=== PATIENT | female | born 1945 | race Caucasian/White ===

== ENCOUNTER 2017-06-22 10:13 | Inpatient (IN) | payer MEDICARE, SELFPAY ==
[2017-06-22 10:13] VITALS: BP 151/81; PULSE 107; RESP 15; TEMP 36.3; BMI 26.4
[2017-06-22 10:58] VITALS: BP 150/66; PULSE 75; RESP 15; O2SAT 97
--- NOTE | 2017-06-22 11:01 | EKG12_ITS ---
Test Reason : Blood Pressure : / mmHG Vent. Rate : 085 BPM Atrial Rate : 085 BPM P-R Int : 174 ms QRS Dur : 078 ms QT Int : 378 ms P-R-T Axes : 039 035 063 degrees QTc Int : 449 ms Normal sinus rhythm Low voltage QRS Septal infarct , age undetermined Abnormal ECG Confirmed by NIR TODD, JOSEPH ([id number]), social media editor HORACIO HERNÁNDEZ ([id number]) on 06/24/2017 1:29:30 PM Referred By: Confirmed By:JOSEPH LOYOLA MD
--- NOTE | 2017-06-22 11:01 | US_ITS ---
STUDY: ABDOMINAL ULTRASOUND - RIGHT UPPER QUADRANT REASON FOR VISIT: Female, 72 years old. RUQ PAIN- H/O GALLSTONES. TECHNIQUE: Ultrasound evaluation of the right upper quadrant was performed with real-time and static landa-scale imaging. TECHNICAL QUALITY: Adequate. COMPARISON: None. FINDINGS: Liver: The liver measures 13.8 cm. There is increased echogenicity consistent with fatty infiltration. The bile ducts are within normal limits. There is hepatic color flow. The direction of portal flow is hepatopetal. There is no demonstrated mass lesion. Gallbladder: The gallbladder wall measures 5.0 mm. There is a positive sonographic Swann's sign. There is no pericholecystic fluid. There are multiple echogenic structures within the gallbladder, consistent with multiple gallstones. Common Bile Duct (C.B.D.): The common bile duct measures 6 mm. Pancreas: Normal size of the head, body of the pancreas. There is normal echogenicity of the pancreas. There is no demonstrated pancreatic mass or cyst. Right Kidney: Normal size of the right kidney. The right kidney measures 9.8 cm. Normal renal cortex. The right cortex measures cm. There is no demonstrated renal mass or cyst. There is no right hydronephrosis. US/Gallbladder IMPRESSION: Cholelithiasis and positive sonographic Swann's sign. Gallbladder wall thickening. Acute cholecystitis is not excluded No pericholecystic fluid. Electronically Signed: Reji Velez MD at 12:10 EDT Tel , Service support ,
[2017-06-22 11:13] LABS: Absolute Lymphocyte Count 2.39 X10^3/ul (0.83-4.51); Absolute Neutrophil Count 6.5 X10^3/uL (2.0-7.7); Basophil# 0.02 X10^3/uL; Basophil% 0.2 % (0-1); Eosinophil# 0.07 X10^3/uL; Eosinophils% 0.7 % (0-5); Lymphocyte # 2.39 X10^3/ul (4.0); Lymphocyte % 24.1 % (19-41); Mean Corpuscular Hgb 31.2 pg (27.0-32.0); Mean Corpuscular Volume 89.1 fL (81-99); Mean Platelet Vol. 10.9 fl (6.2-12.0); Monocyte# 0.89 X10^3/uL; Neutrophil % 65.6 % (47-70); Platelet Count 213 K/mm3 (150-450); RBC Distribution Width CV 12.5 % (11.6-14.6); RBC Distribution Width SD 40.3 fl (35.1-43.9); Red Blood Count 4.49 M/mm3 (4.2-5.4); White Blood Count 9.9 K/mm3 (4.4-11.0)
[2017-06-22 11:15] LABS: POSITIVE COUNT NO; POSITIVE DIFFERENTIAL NO; POSITIVE MORPHOLOGY NO
[2017-06-22] MEDS: Ondansetron 4 MG/2 ML Vial IV (11:20)
[2017-06-22] MEDS: Morphine 4 MG/ML Syringe IV (11:20)
[2017-06-22 11:29] LABS: ALB/GLOB Ratio 1.1 RATIO (0.9-2.4); AST(SGOT) 21 U/L (15-37); Alanine Aminotransfer ALT/SGPT 16 U/L (13-56); Albumin, Serum 3.9 g/dL (3.2-5.0); Alkaline Phosphatase 55 U/L (45-117); Anion Gap 11 (5-15); BUN 19 mg/dL (7-18); BUN/Creat Ratio 17.3 RATIO (10-20); Calcium,Total 9.4 mg/dL (8.5-10.1); Chloride 102 mmol/L (98-107); EST Glomerular Filtration Rate 52 mL/min (>60); Est Glom Filt Rate - Afr Amer 63 mL/min (>60); Estimated Creatinine Clearance 36.03 ml/min; Globulin 3.6 g/dL (2.2-4.2); Glucose 196 mg/dL (74-106); Lipase 296 U/L (73-393); Potassium 3.4 mmol/L (3.5-5.1); Protein, Total 7.5 g/dL (6.4-8.2); Sodium Level 138 mmol/L (136-145)
[2017-06-22 11:43] LABS: Bacteria 0 SEEN /hpf (None Seen); Mucous, Urine 0 SEEN /hpf (<or=2+); Red Blood Cells-Urine 0 SEEN /hpf (0-5); White Blood Cells 0 SEEN /hpf (0-5)
[2017-06-22 11:45] LABS: Color, Urine Yellow (Yellow); Glucose, Dipstick Normal (Normal); Ketone-Dipstick 15 mg/dl (Negative); Leukocyte Esterase-Dipstick Negative /ul (Negative); Nitrite-Dipstick Negative (Negative); Occult Blood-Urine 10 /ul (Negative); Protein-Dipstick Negative (Negative); Urine Bilirubin Dipstick Negative (Negative); Urine Clarity Clear (Clear); Urine Urobilinogen Normal (Normal)
[2017-06-22 11:50] LABS: Squamous Epithelial Cells - UA 0-5 SEEN /hpf (5-10)
[2017-06-22 12:13] VITALS: BP 132/80; PULSE 89; RESP 14; O2SAT 99
[2017-06-22 13:04] VITALS: BP 148/80; PULSE 85; RESP 14; O2SAT 98
--- NOTE | 2017-06-22 13:21 | ED.VISSUMM ---
- ER Visit Summary Date of Service: 06/22/17 Chief Complaint: [Abdominal pain] History of Present Illness: The patient is a 72 F [presents the emergency department with abdominal pain. It started yesterday at 2 PM. She ate pizza for lunch. It was bilateral upper quadrant and then has continued to get worse on the right side. She has had nausea no vomiting. Bowel movements have been normal. No fevers or chills. She does have a cardiac history and is having some chest pain. She also has a history of gallstones and had a common bile duct stone 5 years ago with biliary duct stent placement and that was subsequently removed but the gallbladder was not taken out.] Physical Examination: [] WN WD NAD PERRL EOMI MMM NECK supple and nontender, no masses RRR no murmur rub or gallop, no peripheral edema, symmetric radial pulses CTAB no respiratory distress ABDOMEN is soft redness to palpation with guarding in the right upper quadrant normal bowel sounds, no distension, no rebound or guarding SKIN is warm and dry no rashes Alert and Oriented x3, CN II-XII in tact, no motor or sensory deficits, gait normal No lymphadenopathy Test Results: [] Emergency Department Course and Treatment: [Screening labs were obtained. EKG was unchanged. Troponin was normal. There was no leukocytosis. Ultrasound consistent with cholecystitis gallbladder wall thickening gallstones with a positive sonographic Swann sign. Liver enzymes are within normal limits. I spoke with Dr. Valdes who will admit the patient.] Treatment Plan: [] Disposition: [Admit] Impression: [choleCystitis] This note was generated with [employer] dictation software. It may contain incorrect words, spelling, and punctuation that were not noted in review of the chart prior to signing ED Disposition - Plan for ED Patient: Chief Complaint: Abd Pain
[2017-06-22 13:48] VITALS: BP 152/78; PULSE 76; RESP 18; TEMP 36.9; O2SAT 96
[2017-06-22 13:55] VITALS: BMI 27.2
[2017-06-22 13:56] VITALS: BMI 27.3
--- NOTE | 2017-06-22 14:56 | PCM.HP.STD ---
<Marika Valdes - Last Filed: 06/22/17 16:56> History of Present Illness The patient is a 72 year old F [] Past Medical History Past Medical History (Chronic Problems): Chronic Problems History of stroke (Chronic) Diabetes mellitus, type 2 (Chronic) Hyperlipidemia (Chronic) Hypertension (Chronic) Allergies iodine Allergy (Verified 06/22/17 10:15) Unknown prednisone Adverse Reaction (Verified 06/22/17 10:15) Other TACHYCARDIA Home Medications: Ambulatory Orders Medication Instructions Recorded Cholecalciferol (Vitamin D3) 1,000 unit PO DAILY 06/22/17 [Vitamin D3] Clopidogrel Bisulfate [Plavix] 75 mg PO DINNER 06/22/17 Enalapril/Hydrochlorothiazide 1 each PO DAILY 06/22/17 [Enalapril-Hctz 10-25 mg Tablet] Glipizide 2.5 mg PO BIDCM 06/22/17 Magnesium 500 mg PO DAILY 06/22/17 Metoprolol Succinate 25 mg PO DAILY 06/22/17 Potassium Chloride [Klor-Con] 20 meq PO DAILY 06/22/17 Ranitidine [Zantac] 150 mg PO DAILY 06/22/17 Simvastatin 40 mg PO QHS 06/22/17 traZODone [Desyrel] 100 mg PO QHS 06/22/17 Acetaminophen [Tylenol] 1,000 mg PO Q8 tablet 06/25/17 Oxycodone [Oxyir] 5 mg PO Q6H PRN PRN 7 Days #30 06/25/17 tablet - Physical Exam Vital Signs Temp Pulse Resp BP Pulse Ox 98.5 F 76 18 152/78 H 96 06/22/17 13:48 06/22/17 13:48 06/22/17 13:48 06/22/17 13:48 06/22/17 13:48 Oxygen Delivery Method Room Air Weight: 67.631 kg Body Mass Index (BMI) 27.2 POC Glucose 06/22/17 16:27 POC Glucose 252 H Assessment/Plan I agree with the above. Clinically, The patient has cholecystitis, will treat with IV antibiotics. I have consulted Dr. Green to evaluate patient for medical evaluation prior to surgery. NPO after MDNT. Plan surgery tomorrow morning. I have discussed the above with the patient and her daughter who is present with her. I have offered the patient the procedure of laparoscopic cholecystectomy. I have explained the procedure to the patient. I have counseled the patient as to the risks of the procedure, including but not limited to: infection, bleeding, injury to any blood vessels/nerves, scar tissue, injury to any intraabdominal organs, injury to kidney/ureters, injury to bowel/bladder, injury to the common bile duct/biliary tree, bile leakage, intraabdominal abscess/bleeding, hernias at incisional sites, wound infections, possible open procedure, complications of anesthesia, postoperative pneumonia/cardiac problems/blood clots etc. the patient understands. She wishes to proceed. I have answered all questions to the patients satisfaction and the patient has no further questions. <Mary Hernandes - Last Filed: 06/27/17 10:24> History of Present Illness Date of Admission: 06/22/17 Chief Complaint: abdominal pain The patient is a 72 year old F I am seeing for surgical consultation in conjunction with Dr. Valdes. The patient notes a 1-day history of severe upper abdominal pain with radiation into her right upper quadrant, began several hours after eating pizza for lunch yesterday. She notes some associated nausea without emesis. She notes a similar episode of pain about 5 years ago, notes was hospitalized at that time and found to have gallstones as well as a common bile duct stone. She had ERCP with stent placement which was later removed. She states there were plans to remove her gallbladder at that time but this was delayed as she required cardiac intervention in the interim. The patient had presented to the emergency department for the worsening abdominal pain. She had laboratory studies which showed a normal white blood cell count and liver enzymes within normal limits. Ultrasound of the right upper quadrant showed gallbladder wall thickening and cholelithiasis with positive sonographic Swann's sign. Due to patient's cardiac history EKG was also obtained which showed no acute changes. Dr. Valdes was contacted and admitted the patient. Patient's past medical history is significant for CVA, type II diabetes mellitus, hypertension, atrial fibrillation, coronary artery disease, hyperlipidemia, and carotid artery stenosis. Past surgical history is significant for CABG and left CEA in 2013, as well as prior ERCP with common bile duct stenting and subsequent removal as noted above. She denies any history of DVT/PE. She denies any problems with anesthesia in the past. Patient follows regularly with Dr. Jones in [place] for her chronic medical conditions, notes she has not followed with a paperhanger contractor for a couple of years. She denies any chest pain or shortness of breath currently. Past Medical History Allergies iodine Allergy (Verified 06/22/17 10:15) Unknown prednisone Adverse Reaction (Verified 06/22/17 10:15) Other TACHYCARDIA Surgical History: coronary bypass surgery, - - Hysterectomy, tonsillectomy, tubal ligation, carotid endarterectomy, ERCP with CBC stent Smoking Status: Former smoker - *Family History Paternal History Items: Diabetes, Heart Disease Review of Systems Constitutional: Reports: Malaise. Denies: Chills, Fever Eyes: Denies: Vision Change HEENT: Denies: Hearing Changes Cardiovascular: Denies: Chest Pain, Chest Pressure, Edema Respiratory: Denies: Shortness of Breath Gastrointestinal: Reports: Abdominal Pain, Nausea. Denies: Diarrhea, Hematemesis Skin: Denies: Skin Changes VTE Information - Inpt Only VTE Present on Admission: No - Physical Exam General: Alert, Oriented x3, Cooperative, No apparent distress, Well developed, Well nourished HEENT: Atraumatic, Normocephalic Oral: Moist Mucosa Neck: Supple, - - scar from CEA Lungs: Clear to auscultation Cardiovascular: Regular rate, Regular Rhythm Abdomen: Bowel Sounds Present, Soft, Tender - TTP mid abdomen and RUQ with mild voluntary guarding, +Swann's sign Extremities: No clubbing, No cyanosis, No edema Skin: No rashes, No breakdown Psych/Mental Status: Normal Affect, Appropriate Vital Signs Temp Pulse Resp BP Pulse Ox 98.5 F 76 18 152/78 H 96 06/22/17 13:48 06/22/17 13:48 06/22/17 13:48 06/22/17 13:48 06/22/17 13:48 Oxygen Delivery Method Room Air Weight: 149 lb 1.6 oz Body Mass Index (BMI) 27.2 Assessment/Plan I have reviewed my findings with Dr. Valdes, who also independently evaluated the patient Cholelithiasis with cholecystitis Patient admitted to floor, per Dr. Valdes will also consult hospitalist to assist with medical management. Hold Plavix. May have clear liquids today, NPO after midnight. Tentative plan for laparoscopic cholecystectomy tomorrow morning. The proposed technique, risks and benefits were discussed with the patient who agreed to proceed with surgery.
[2017-06-22] MEDS: 0.9% NaCl Peripheral Flush Adult/Peds IV ×2 (15:03→20:22)
[2017-06-22] MEDS: Morphine 4 MG/ML Syringe 2 MG IV (15:03)
--- NOTE | 2017-06-22 15:19 | HP.PCM_ITS ---
<Marika Valdes - Last Filed: 06/22/17 16:56> History of Present Illness The patient is a 72 year old F [] Past Medical History Past Medical History (Chronic Problems): Chronic Problems History of stroke (Chronic) Diabetes mellitus, type 2 (Chronic) Hyperlipidemia (Chronic) Hypertension (Chronic) Allergies iodine Allergy (Verified 06/22/17 10:15) Unknown prednisone Adverse Reaction (Verified 06/22/17 10:15) Other TACHYCARDIA Home Medications: Ambulatory Orders Medication Instructions Recorded Cholecalciferol (Vitamin D3) 1,000 unit PO DAILY 06/22/17 [Vitamin D3] Clopidogrel Bisulfate [Plavix] 75 mg PO DINNER 06/22/17 Enalapril/Hydrochlorothiazide 1 each PO DAILY 06/22/17 [Enalapril-Hctz 10-25 mg Tablet] Glipizide 2.5 mg PO BIDCM 06/22/17 Magnesium 500 mg PO DAILY 06/22/17 Metoprolol Succinate 25 mg PO DAILY 06/22/17 Potassium Chloride [Klor-Con] 20 meq PO DAILY 06/22/17 Ranitidine [Zantac] 150 mg PO DAILY 06/22/17 Simvastatin 40 mg PO QHS 06/22/17 traZODone [Desyrel] 100 mg PO QHS 06/22/17 Acetaminophen [Tylenol] 1,000 mg PO Q8 tablet 06/25/17 Oxycodone [Oxyir] 5 mg PO Q6H PRN PRN 7 Days #30 06/25/17 tablet - Physical Exam Vital Signs Temp Pulse Resp BP Pulse Ox 98.5 F 76 18 152/78 H 96 06/22/17 13:48 06/22/17 13:48 06/22/17 13:48 06/22/17 13:48 06/22/17 13:48 Oxygen Delivery Method Room Air Weight: 67.631 kg Body Mass Index (BMI) 27.2 POC Glucose 06/22/17 16:27 POC Glucose 252 H Assessment/Plan I agree with the above. Clinically, The patient has cholecystitis, will treat with IV antibiotics. I have consulted Dr. Green to evaluate patient for medical evaluation prior to surgery. NPO after MDNT. Plan surgery tomorrow morning. I have discussed the above with the patient and her daughter who is present with her. I have offered the patient the procedure of laparoscopic cholecystectomy. I have explained the procedure to the patient. I have counseled the patient as to the risks of the procedure, including but not limited to: infection, bleeding, injury to any blood vessels/nerves, scar tissue, injury to any intraabdominal organs, injury to kidney/ureters, injury to bowel/bladder, injury to the common bile duct/biliary tree, bile leakage, intraabdominal abscess/bleeding, hernias at incisional sites, wound infections, possible open procedure, complications of anesthesia, postoperative pneumonia/ cardiac problems/blood clots etc. the patient understands. She wishes to proceed. I have answered all questions to the patient?s satisfaction and the patient has no further questions. <Mary Hernandes - Last Filed: 06/27/17 10:24> History of Present Illness Date of Admission: 06/22/17 Chief Complaint: abdominal pain The patient is a 72 year old F I am seeing for surgical consultation in conjunction with Dr. Valdes. The patient notes a 1-day history of severe upper abdominal pain with radiation into her right upper quadrant, began several hours after eating pizza for lunch yesterday. She notes some associated nausea without emesis. She notes a similar episode of pain about 5 years ago, notes was hospitalized at that time and found to have gallstones as well as a common bile duct stone. She had ERCP with stent placement which was later removed. She states there were plans to remove her gallbladder at that time but this was delayed as she required cardiac intervention in the interim. The patient had presented to the emergency department for the worsening abdominal pain. She had laboratory studies which showed a normal white blood cell count and liver enzymes within normal limits. Ultrasound of the right upper quadrant showed gallbladder wall thickening and cholelithiasis with positive sonographic Swann' s sign. Due to patient's cardiac history EKG was also obtained which showed no acute changes. Dr. Valdes was contacted and admitted the patient. Patient's past medical history is significant for CVA, type II diabetes mellitus , hypertension, atrial fibrillation, coronary artery disease, hyperlipidemia, and carotid artery stenosis. Past surgical history is significant for CABG and left CEA in 2013, as well as prior ERCP with common bile duct stenting and subsequent removal as noted above. She denies any history of DVT/PE. She denies any problems with anesthesia in the past. Patient follows regularly with Dr. Jones in [place] for her chronic medical conditions, notes she has not followed with a weight calculator for a couple of years. She denies any chest pain or shortness of breath currently. Past Medical History Allergies iodine Allergy (Verified 06/22/17 10:15) Unknown prednisone Adverse Reaction (Verified 06/22/17 10:15) Other TACHYCARDIA Surgical History: coronary bypass surgery, - - Hysterectomy, tonsillectomy, tubal ligation, carotid endarterectomy, ERCP with CBC stent Smoking Status: Former smoker - *Family History Paternal History Items: Diabetes, Heart Disease Review of Systems Constitutional: Reports: Malaise. Denies: Chills, Fever Eyes: Denies: Vision Change HEENT: Denies: Hearing Changes Cardiovascular: Denies: Chest Pain, Chest Pressure, Edema Respiratory: Denies: Shortness of Breath Gastrointestinal: Reports: Abdominal Pain, Nausea. Denies: Diarrhea, Hematemesis Skin: Denies: Skin Changes VTE Information - Inpt Only VTE Present on Admission: No - Physical Exam General: Alert, Oriented x3, Cooperative, No apparent distress, Well developed, Well nourished HEENT: Atraumatic, Normocephalic Oral: Moist Mucosa Neck: Supple, - - scar from CEA Lungs: Clear to auscultation Cardiovascular: Regular rate, Regular Rhythm Abdomen: Bowel Sounds Present, Soft, Tender - TTP mid abdomen and RUQ with mild voluntary guarding, +Swann's sign Extremities: No clubbing, No cyanosis, No edema Skin: No rashes, No breakdown Psych/Mental Status: Normal Affect, Appropriate Vital Signs Temp Pulse Resp BP Pulse Ox 98.5 F 76 18 152/78 H 96 06/22/17 13:48 06/22/17 13:48 06/22/17 13:48 06/22/17 13:48 06/22/17 13:48 Oxygen Delivery Method Room Air Weight: 149 lb 1.6 oz Body Mass Index (BMI) 27.2 Assessment/Plan I have reviewed my findings with Dr. Valdes, who also independently evaluated the patient Cholelithiasis with cholecystitis Patient admitted to floor, per Dr. Valdes will also consult hospitalist to assist with medical management. Hold Plavix. May have clear liquids today, NPO after midnight. Tentative plan for laparoscopic cholecystectomy tomorrow morning. The proposed technique, risks and benefits were discussed with the patient who agreed to proceed with surgery.
--- NOTE | 2017-06-22 15:33 | PCM.PROGNOTE ---
<Mila Mendenhall - Last Filed: 06/22/17 16:20> Subjective: Patient seen and examined. Complains of right mid and right upper quadrant abdominal pain. Not relieved by previous dose of IV morphine. Complains of nausea, denies emesis. Denies fever, chills. Denies chest pain, shortness of breath. Denies other current complaints. - Physical Exam General: Alert, Oriented x3, Cooperative, - - Appears uncomfortable HEENT: Atraumatic, PERRLA, EOMI, Normocephalic Oral: Dry Mucosa Neck: Supple, No JVD, Negative Carotid Bruits Lungs: Clear to auscultation, Diminished Cardiovascular: Regular rate, Regular Rhythm, Normal S1, Normal S2, No murmurs Abdomen: Bowel Sounds Present, Soft, Obese, Tender - Right upper quadrant Extremities: No clubbing, No cyanosis, No edema, Capillary Refill Less than 3 Seconds Skin: No rashes, No breakdown Musculoskeletal: No Tenderness to Palpation of Joints or Extremities Neurological: Cranial nerves II-XII grossly intact, Neuro grossly intact Psych/Mental Status: Normal Affect, Appropriate Vital Signs Temp Pulse Resp BP Pulse Ox 98.5 F 76 18 152/78 H 96 06/22/17 13:48 06/22/17 13:48 06/22/17 13:48 06/22/17 13:48 06/22/17 13:48 Oxygen Delivery Method Room Air Weight: 67.631 kg Body Mass Index (BMI) 27.2 Medical Necessity - Tobacco Use Smoking Status: Former smoker Assessment/Plan Patient is a 72-year-old female admitted 06/22/[address] Valdes due to cholecystitis. Hospitalist services requested for medical management. 1. Acute cholecystitis-ultrasound on admission consistent with cholecystitis, gallbladder wall thickening with positive sonographic Swann sign. Patient admitted under Dr. Valdes who plans for cholecystectomy tomorrow. Clear liquid diet. N.p.o. at midnight. PRN pain regimen. Zofran as needed for nausea. Begin IV fluids at midnight due to n.p.o. status. No leukocytosis. Afebrile. 2. Mild hypokalemia-replace orally. Monitor BMP. 3. Mild elevated creatinine-at patient's baseline of 1.1. Suspect underlying chronic kidney disease. Monitor BMP. 4. CAD s/p CABG approximately 3 years ago in [facility] she has not followed up with cardiology since that time. Continue statin, metoprolol. Hold Plavix prior to surgery. Obtain EKG in a.m. Patient denies current or recent chest pain. Denies shortness of breath at rest and with exertion. Recommend follow-up with cardiology as outpatient at discharge. 5. Hypertension-stable, continue to monitor. Continue home regimen. As needed hydralazine. 6. Hyperlipidemia-continue statin. 7. CVA/TIA-continue statin, metoprolol. Hold Plavix prior to surgery. 8. History of diverticulitis 9. GERD-continue Zantac. 10. Type 2 diabetes mellitus-hold oral regimen. Accu-Cheks before meals at bedtime with sliding scale insulin. 11. Depression-continue home trazodone regimen. 12. Carotid artery disease-continue statin. Hold Plavix prior to surgery. DVT prophylaxis-Lovenox subcu. Hold prior to surgery. This patient was seen by DERICK Styles under the supervision of Dr. Green. <Martin Green - Last Filed: 06/22/17 17:13> Subjective: Seen and examined Patient is admitted with right upper quadrant abdominal pain along with nausea. Clinical picture is consistent with acute cholecystitis with cholelithiasis - Physical Exam Lungs: Clear to auscultation, No rhonchi, No wheeze, No rales Cardiovascular: Regular rate, Regular Rhythm, Normal S1, Normal S2 Abdomen: Tender Vital Signs Temp Pulse Resp BP Pulse Ox 98.5 F 76 18 152/78 H 96 06/22/17 13:48 06/22/17 13:48 06/22/17 13:48 06/22/17 13:48 06/22/17 13:48 Oxygen Delivery Method Room Air Weight: 149 lb 1.6 oz Body Mass Index (BMI) 27.2 POC Glucose 06/22/17 16:27 POC Glucose 252 H Assessment/Plan This patient was seen in conjunction with Mila MATHIS. I have independently interviewed and examined the patient and reviewed pertinent history, examination findings, laboratory and plan of management. I have reviewed the note and agree with the documented findings with the few additional points. In brief, patient is admitted for acute cholecystitis with cholelithiasis. She had similar abdominal pain with cholecystitis about 3 years ago but surgery was postponed secondary to coronary artery disease and she had coronary artery bypass surgery. She did not had cardiac event since then. She has good exercise capacity and climbs up and down several times about 30 steps daily. She can walk 1-2 blocks. EKG shows normal sinus rhythm with old septal infarct. Mcgee perioperative risk for MS or cardiac arrest at 0.1%. Mild hypokalemia: Potassium replaced I have discussed my assessment with RUBBER GOODS CUTTER FINISHERMila and orders have been reviewed. Clinical Impression(s) from Imaging Studies Gallbladder Ultrasound 06/22/17 11:01 IMPRESSION: Cholelithiasis and positive sonographic Swann's sign. Gallbladder wall thickening. Acute cholecystitis is not excluded No pericholecystic fluid. Electronically Signed: Reji Velez MD at 12:10 EDT Tel , Service support , Code Visit Inpatient E&M: 24291 Init Hosp L2
--- NOTE | 2017-06-22 15:55 | PN_ITS ---
<Mila Mendenhall - Last Filed: 06/22/17 16:20> Subjective: Patient seen and examined. Complains of right mid and right upper quadrant abdominal pain. Not relieved by previous dose of IV morphine. Complains of nausea, denies emesis. Denies fever, chills. Denies chest pain, shortness of breath. Denies other current complaints. - Physical Exam General: Alert, Oriented x3, Cooperative, - - Appears uncomfortable HEENT: Atraumatic, PERRLA, EOMI, Normocephalic Oral: Dry Mucosa Neck: Supple, No JVD, Negative Carotid Bruits Lungs: Clear to auscultation, Diminished Cardiovascular: Regular rate, Regular Rhythm, Normal S1, Normal S2, No murmurs Abdomen: Bowel Sounds Present, Soft, Obese, Tender - Right upper quadrant Extremities: No clubbing, No cyanosis, No edema, Capillary Refill Less than 3 Seconds Skin: No rashes, No breakdown Musculoskeletal: No Tenderness to Palpation of Joints or Extremities Neurological: Cranial nerves II-XII grossly intact, Neuro grossly intact Psych/Mental Status: Normal Affect, Appropriate Vital Signs Temp Pulse Resp BP Pulse Ox 98.5 F 76 18 152/78 H 96 06/22/17 13:48 06/22/17 13:48 06/22/17 13:48 06/22/17 13:48 06/22/17 13:48 Oxygen Delivery Method Room Air Weight: 67.631 kg Body Mass Index (BMI) 27.2 Medical Necessity - Tobacco Use Smoking Status: Former smoker Assessment/Plan Patient is a 72-year-old female admitted 06/22/[address] Valdes due to cholecystitis. Hospitalist services requested for medical management. 1. Acute cholecystitis-ultrasound on admission consistent with cholecystitis, gallbladder wall thickening with positive sonographic Swann sign. Patient admitted under Dr. Valdes who plans for cholecystectomy tomorrow. Clear liquid diet. N.p.o. at midnight. PRN pain regimen. Zofran as needed for nausea. Begin IV fluids at midnight due to n.p.o. status. No leukocytosis. Afebrile. 2. Mild hypokalemia-replace orally. Monitor BMP. 3. Mild elevated creatinine-at patient's baseline of 1.1. Suspect underlying chronic kidney disease. Monitor BMP. 4. CAD s/p CABG approximately 3 years ago in [facility] she has not followed up with cardiology since that time. Continue statin, metoprolol. Hold Plavix prior to surgery. Obtain EKG in a.m. Patient denies current or recent chest pain. Denies shortness of breath at rest and with exertion. Recommend follow-up with cardiology as outpatient at discharge. 5. Hypertension-stable, continue to monitor. Continue home regimen. As needed hydralazine. 6. Hyperlipidemia-continue statin. 7. CVA/TIA-continue statin, metoprolol. Hold Plavix prior to surgery. 8. History of diverticulitis 9. GERD-continue Zantac. 10. Type 2 diabetes mellitus-hold oral regimen. Accu-Cheks before meals at bedtime with sliding scale insulin. 11. Depression-continue home trazodone regimen. 12. Carotid artery disease-continue statin. Hold Plavix prior to surgery. DVT prophylaxis-Lovenox subcu. Hold prior to surgery. This patient was seen by DERICK Styles under the supervision of Dr. Green. <Martin Green - Last Filed: 06/22/17 17:13> Subjective: Seen and examined Patient is admitted with right upper quadrant abdominal pain along with nausea. Clinical picture is consistent with acute cholecystitis with cholelithiasis - Physical Exam Lungs: Clear to auscultation, No rhonchi, No wheeze, No rales Cardiovascular: Regular rate, Regular Rhythm, Normal S1, Normal S2 Abdomen: Tender Vital Signs Temp Pulse Resp BP Pulse Ox 98.5 F 76 18 152/78 H 96 06/22/17 13:48 06/22/17 13:48 06/22/17 13:48 06/22/17 13:48 06/22/17 13:48 Oxygen Delivery Method Room Air Weight: 149 lb 1.6 oz Body Mass Index (BMI) 27.2 POC Glucose 06/22/17 16:27 POC Glucose 252 H Assessment/Plan This patient was seen in conjunction with Mila MATHIS. I have independently interviewed and examined the patient and reviewed pertinent history, examination findings, laboratory and plan of management. I have reviewed the note and agree with the documented findings with the few additional points. In brief, patient is admitted for acute cholecystitis with cholelithiasis. She had similar abdominal pain with cholecystitis about 3 years ago but surgery was postponed secondary to coronary artery disease and she had coronary artery bypass surgery. She did not had cardiac event since then. She has good exercise capacity and climbs up and down several times about 30 steps daily. She can walk 1-2 blocks. EKG shows normal sinus rhythm with old septal infarct. Mcgee perioperative risk for WA or cardiac arrest at 0.1%. Mild hypokalemia: Potassium replaced I have discussed my assessment with MOLDER VACUUMMila and orders have been reviewed. Clinical Impression(s) from Imaging Studies Gallbladder Ultrasound 06/22/17 11:01 IMPRESSION: Cholelithiasis and positive sonographic Swann's sign. Gallbladder wall thickening. Acute cholecystitis is not excluded No pericholecystic fluid. Electronically Signed: Reji Velez MD at 12:10 EDT Tel , Service support , Code Visit Inpatient E&M: 46026 Init Hosp L2
[2017-06-22] MEDS: 0.9% Normal Saline 1,000 ML 100 ML IV (16:31)
[2017-06-22 16:46] LABS: Bedside Glucose 252 mg/dL (70-110)
[2017-06-22] MEDS: HYDROmorphone 0.5 MG/0.5 ML SYRINGE IV ×3 (17:32→23:19)
[2017-06-22 21:51] VITALS: BP 129/60; PULSE 78; RESP 16; TEMP 36.8; O2SAT 99
[2017-06-22] MEDS: Atorvastatin Calcium 20 MG Tablet PO (22:05)
[2017-06-22 22:51] LABS: Bedside Glucose 210 mg/dL (70-110)
[2017-06-23] VITALS (13 sets, daily range): BP systolic 110–149; BP diastolic 35–80; PULSE 71–100; RESP 14–18; TEMP 36.2–37.3; O2SAT 93–100; BMI 27.2; BMI 27.3
--- NOTE | 2017-06-23 | GALL_PTH ---
PATIENT: YING MORATAYA LOC: MS3 U#:[id number] AGE/SX: 72/F ROOM: MS319 RE06/22/[address]: Dr. Manasa Davis MD : [id number] BED: 1 DIS: 06/25/2017 SPEC #: [id number] RECD: 06/23/17 14:58 STATUS: ZACH REQ #: [id number] TICO: 06/23/17 00:[address]: Marika Valdes DEPT: SURGICAL PATHOLOGY RECD BY: Mike Hankins ENTERED: 06/23/17 14:58 SP TYPE: GALLBLADDE OTHR DR: MD Dr. Lynn Harman MD Dr. Linda Wang, MD Dr. Prakash Chand, MD Tissues: Gallbladder, NOS Procedures: Surgery Specimen Level III Comments: @ Ordering doctor for SUIII edited from to @ by MAMIE at 06/23/17 1545 @ Submitting doctor edited from to @ by ARMENOD at 06/23/17 1545 HEADER OPERATION: Laparoscopic cholecystectomy PRE-OP DIAGNOSIS: Cholelithiasis, biliary colic and suspected cholecystitis TISSUE SUBMITTED: Gallbladder MICROSCOPIC DIAGNOSIS Gallbladder: Acute and chronic cholecystitis and cholelithiasis. Reactive epithelial changes. SJ:michelle 06/24/17 COMMENT Case has been reviewed in consultation with Dr. Vo who concurs with the above diagnosis. IDC:AM MICROSCOPIC DESCRIPTION Slides are reviewed. GROSS DESCRIPTION Received is one container labeled with the patient's name and designated gallbladder. The specimen consists of a previously, partially opened gallbladder in two pieces measuring 8 cm in length and 3.5 cm in diameter. The external surface is pink-barkley, smooth and glistening for the most part. Focally it is granular, hemorrhagic and contains cautery artifact. Present in the gallbladder and also in the container are multiple irregular brownish-black stones measuring in aggregate 5 x 4.5 x 3 cm and 0.5 to 3 cm in greatest dimension. No obvious bile is identified in the gallbladder. The gallbladder wall measures up to 0.8 cm in thickness. Pipe Washer sections from the gallbladder and the cystic duct are submitted in one cassette. / SJ:michelle 06/23/17 More sections are submitted in three more cassettes, 2-4. / IMAN:michelle 06/24/17 TC:2 CPT: 98918
[2017-06-23] MEDS: 0.9% Normal Saline 1,000 ML 100 ML IV (03:23)
[2017-06-23 05:55] LABS: Hematocrit 36.9 % (37-47); Hemoglobin 12.1 g/dl (12.0-15.0); Mean Corp Hgb Conc 32.8 g/gl (32-36); Mean Corpuscular Hgb 29.8 pg (27.0-32.0); Mean Corpuscular Volume 90.9 fL (81-99); Mean Platelet Vol. 10.5 fl (6.2-12.0); Platelet Count 173 K/mm3 (150-450); RBC Distribution Width CV 12.7 % (11.6-14.6); RBC Distribution Width SD 41.9 fl (35.1-43.9); Red Blood Count 4.06 M/mm3 (4.2-5.4)
--- NOTE | 2017-06-23 05:55 | EKG12_ITS ---
Test Reason : AM EKG Blood Pressure : / mmHG Vent. Rate : 068 BPM Atrial Rate : 068 BPM P-R Int : 180 ms QRS Dur : 076 ms QT Int : 410 ms P-R-T Axes : 050 031 059 degrees QTc Int : 435 ms Normal sinus rhythm Low voltage QRS Septal infarct , age undetermined Abnormal ECG Confirmed by CECILE TODD, VELIA ([id number]), publications editor HORACIO HERNÁNDEZ ([id number]) on 07/06/2017 3:25:21 PM Referred By: LYDIA Confirmed By:VELIA HUBER MD
[2017-06-23 06:09] LABS: Scan Indicated on CBC? Y/N NO
[2017-06-23 06:17] LABS: Anion Gap 7 (5-15); BUN 14 mg/dL (7-18); BUN/Creat Ratio 13.5 RATIO (10-20); Calcium,Total 8.5 mg/dL (8.5-10.1); Chloride 104 mmol/L (98-107); Creatinine, Serum 1.04 mg/dL (0.55-1.02); EST Glomerular Filtration Rate 55 mL/min (>60); Est Glom Filt Rate - Afr Amer 67 mL/min (>60); Glucose 233 mg/dL (74-106); Potassium 4.4 mmol/L (3.5-5.1); Sodium Level 140 mmol/L (136-145)
[2017-06-23 06:55] LABS: Bedside Glucose 252 mg/dL (70-110)
--- NOTE | 2017-06-23 08:24 | PCM.PN.HOSP ---
Subjective: Patient seen and examined. Complains of some RUQ pain, with some nausea. Denies fever, chills, SOB, diarrhea. She is going for laparoscopic cholecystectomy this morning by Dr. Valdes. Vitals/I&O's: Vital Signs Temp Pulse Resp BP Pulse Ox 98.3 F 71 16 110/56 L 96 06/23/17 03:34 06/23/17 03:34 06/23/17 03:34 06/23/17 03:34 06/23/17 03:34 Oxygen Delivery Method Room Air Weight: 67.631 kg Body Mass Index (BMI) 27.2 Intake and Output for Last 24 Hours 06/21/17 06/22/17 06/23/17 23:59 23:59 23:59 Intake Total / 1689 / 1689 Balance 168 / 1689 General: Alert, Oriented x3, Cooperative, No apparent distress HEENT: Atraumatic, PERRLA, EOMI, Normocephalic Oral: Moist Mucosa Neck: Supple Lungs: Clear to auscultation, Normal air movement Cardiovascular: Regular rate, Regular Rhythm, Normal S1, Normal S2, No murmurs Abdomen: Bowel Sounds Present, Soft, Non Tender, Obese, Tender - in RUQ without guarding or RBT Extremities: No edema Skin: No rashes, No breakdown Musculoskeletal: No Tenderness to Palpation of Joints or Extremities Lymphatic: No Cervical, Supraclavicular, or Inguinal Adenopathy Neurological: Cranial nerves II-XII grossly intact, Neuro grossly intact Psych/Mental Status: Normal Affect, Appropriate Laboratory Results 06/22/17 16:27: POC Glucose 252 H 06/22/17 22:08: POC Glucose 210 H 06/23/17 05:35: Sodium 140, Potassium 4.4, Chloride 104, Carbon Dioxide 29.0, Anion Gap 7, BUN 14, Creatinine 1.04 H, Estim Creat Clear Calc 38.10, Est GFR (MDRD) Af Amer 67, Est GFR (MDRD) Non-Af 55 L, BUN/Creatinine Ratio 13.5, Glucose 233 H, Calcium 8.5 06/23/17 05:35: Hemoglobin A1c Pending 06/23/17 05:35: WBC 11.0, RBC 4.06 L, Hgb 12.1, Hct 36.9 L, MCV 90.9, MCH 29.8, MCHC 32.8, RDW 12.7, RDW Differential 41.9, Plt Count 173, MPV 10.5 06/23/17 06:41: POC Glucose 252 H Current Medications Atorvastatin Calcium (Lipitor) 20 mg PO QHS [facility] Last Admin: 06/22/17 22:05 Dose: 20 mg Cholecalciferol (Vitamin D) 1,000 unit PO DAILY [facility] Dextrose (D50w Syringe) 0 gm IV X1 PRN; Protocol PRN Reason: Hypoglycemia Glucagon () 1 mg IM .X1 PRN PRN Reason: Hypoglycemia Hydralazine HCl (Apresoline Iv) 5 mg IV Q4H PRN PRN PRN Reason: BLOOD PRESSURE Hydrochlorothiazide (Hctz) 25 mg PO DAILY [facility] Hydromorphone HCl (Dilaudid Inj) 0.5 mg IV Q2H PRN PRN PRN Reason: SEVERE PAIN (6-1010) Last Admin: 06/22/17 23:19 Dose: 0.5 mg Sodium Chloride () 1,000 mls @ 100 mls/hr IV .Q10H [facility] Last Admin: 06/23/17 03:23 Dose: 100 mls/hr Pantoprazole Sodium 40 mg/ (Sodium Chloride) 110 mls @ 330 mls/hr IV Q12 [facility] Last Admin: 06/22/17 22:06 Dose: 330 mls/hr Cefotetan Disodium/Dextrose (Cefotan) 1 gm in 50 mls @ 100 mls/hr IV Q12 [facility] Last Admin: 06/22/17 17:57 Dose: 100 mls/hr Insulin Aspart (Novolog Flexpen (Bkc)) 0 units SC ACHS [facility]Y PRN Reason: Protocol Last Admin: 06/23/17 06:42 Dose: 4 u Lisinopril (Zestril) 10 mg PO DAILY [facility] Metoprolol Succinate (Toprol Xl (Beta Silvana)) 25 mg PO DAILY [facility] Ondansetron HCl (Zofran) 4 mg IV Q8H PRN PRN PRN Reason: NAUSEA/VOMITING Potassium Chloride (K-Dur) 20 meq PO DAILY [facility] Sodium Chloride () 5 - 30 ml IV UD PRN PRN Reason: SALINE FLUSH Last Admin: 06/22/17 20:22 Dose: 5 ml Trazodone HCl (Desyrel) 100 mg PO QHS [facility] Last Admin: 06/22/17 22:05 Dose: Not Given Medical Necessity - Tobacco Use Smoking Status: Former smoker Assessment/Plan 72-year-old female with PMHx of choledocholithiasis s/p ERCP with stent placement admitted on 06/22/2017 with abdominal pain, nausea, concerning for cholecystitis. 1. Acute cholecystitis, confirmed with gallbladder ultrasound, positive sonographic Swann's sign and gallbladder wall thickness, -ultrasound on admission consistent with cholecystitis, gallbladder wall thickening, no abnormal LFTs, general surgery consulted, patient for laparoscopic cholecystectomy today, pain is fairly controlled, on IV antibiotics. 2. Hypokalemia, replaced, recheck BMP in a.m. 3. Elevated creatinine secondary to dehydration, improved with hydration, creatinine improved from 1.10 to 1.04, recheck BMP in a.m. 4. CAD s/p CABG, on beta-silvana, statin, MELISSA inhibitor, Plavix on hold on account of surgery 5. Hypertension, continue home lisinopril, metoprolol 6. Hyperlipidemia, on statin. 7. CVA/TIA, on statin, metoprolol. Clopidogrel on hold on account of surgery 8. History of diverticulitis 9. GERD, on famotidine 10.Type 2 diabetes mellitus, patient's are on hold, blood sugars are fairly controlled, Accu-Cheks before meals at bedtime with sliding scale insulin. 11. Depression, on trazodone. 12. DVT prophylaxis-Lovenox subcu Code Visit Inpatient E&M: 42414 Subs Hosp L2
--- NOTE | 2017-06-23 09:51 | CASEMGMT ---
RN CM Assessment completed. See Assessment Link. Margie CRENSHAWN RN ACM
[2017-06-23 09:58] LABS: Hemoglobin A1c 8.8 % (4.2-6.3)
--- NOTE | 2017-06-23 10:12 | NURSING ---
call placed to AC and report given to RN who will be taking this pt
--- NOTE | 2017-06-23 11:07 | PCA ---
pt off floor
--- NOTE | 2017-06-23 11:31 | OP.PN_ITS ---
Immediate Post-Op Note Date of Procedure: 06/23/17 Primary Surgeon/Physician: Marika Valdes mobile paramedical examiner: Tao Estrella Pre-Operative Diagnosis: cholelithiasis, cholecystitis Post-Operative Diagnosis: cholelithiasis with obstruction, cholecystitis Surgery/Procedure Performed:: laparoscopic cholecystectomy Description of Surgical Findings:: severe cholecystitis and cholelithiasis, gallbladder stones with gallbladder obstruction Estimated Blood Loss: 25 Specimen's removed: gallbladder and contents Drains: 15 Fr KURT in right upper quadrant Type of Anesthesia:: General ASA Class: ASA2 Mod Systematic Disease - Admit VTE Documentation VTE Present on Admission: Yes VTE Mechan Device Prophylaxis: SCD's
--- NOTE | 2017-06-23 11:31 | OP.PCM_ITS ---
Report of Operation Date of Procedure: 06/23/17 Pre-Operative Diagnosis: cholelithiasis, cholecystitis Post-Operative Diagnosis: cholelithiasis with obstruction, acute on chronic cholecystitis Surgery/Procedure Performed:: laparoscopic cholecystectomy with cholangiograms Description of Surgical Findings:: cholelithiasis with obstruction, grossly distended gallbladder with thickened wall, omental adhesions to free surface of gallbladder - dense attachments, due to inflammation - could not identify cystic duct - gallbladder transected proximally milking machine mechanic: Jo-Ann Bernardo Type of Anesthesia:: General Anesthesiologist: Elysia Cain Specimen's removed: gallbladder and contents Drains: 15 Fr round drain in right upper quadrant of abdomen Estimated Blood Loss (mL): 25 ml Fluids Replaced: see anesthesia note Description of Procedure: After informed consent was given, the patient was brought to the Operating Room and placed in the supine position. Appropriate time out protocol was followed. The patient was then placed under general endotracheal anesthesia. The abdomen was then prepped with a sterile surgical skin preparation and sterile surgical drapes were placed. An area superior to the umbilicus was chosen for the camera trocar site - the skin and subcutaneous tissues were infiltrated with local anesthetic. A small vertical skin incision was made with a 15 blade scalpel. The anterior fascia was grasped with penetrating clamps. The anterior abdominal wall was elevated and a Veress needle was carefully inserted into the intraabdominal cavity. It was checked to be in the proper position with a normal saline drop test. A CO2 pneumoperitoneum was then created. Once this was achieved, then the Veress needle was removed and an 11mm trocar was placed in its stead. A 10mm laparoscope was then inserted into the trocar and careful attention was directed to the intraabdominal contents. There was no evidence of injury to any intraabdominal organs from insertion of the Veress needle or the trocar. Under direct visualization, a 5mm subxiphoid trocar and two lateral 5mm right subcostal trocars were placed. The skin and subcutaneous tissues at these sites were infiltrated with local anesthetic prior to placement of these trocars. Attention was then directed to the right upper quadrant of the abdomen. The gallbladder was grossly distented. There were dense omental adhesions to the free surface of the gallbladder. Needle aspiration inserted into the gallbladder revealed clear bilious fluid consistent with obstruction. Graspers were placed in the lateral trocars to grasp the distal aspect of the gallbladder and direct it cephalad and to grasp the gallbladder at Higginbotham?s pouch and direct it laterally. Dissection then began on the proximal gallbladder continuing down to the area of the triangle of Calot. However, there were dense adhesions in this area. Therefore at the level of Higginbotham's pouch, the gallbladder was opened. There were obstructing gallstones at this location. There were removed. The remainder of the gallbladder distally was then from the liver bed using electrocautery. There was inflamed tissue and also the patient was on plavix and therefore there was inflammatory oozing present. This was controlled with electrocautery and also surgicel. It was difficult to identify for any cystic duct, however, if appeared that only a small remnant of the gallbladder proximal pouch was noted. The majority portion of the gallbladder was placed in an Endobag and removed via the periumbilical trocar site. The liver bed and area of dissection was vigorously irrigated with saline solution and all irrigant was aspirated out. A 15 Fr round drain was placed in the area of dissection and brought out of the abdomen via one of the lateral trocars. It was then sutured to the abdominal wall skin using nylon suture. Marshal was applied to the liver bed. No active bleeding or bile leak was noted at time of closure. The CO2 pneumoperitoneum was released and all trocars removed intact. The periumbilical fascia was approximated with a [id number] 0 vicryl suture. All skin incisions were closed with 4-0 monocryl in a subdermal fashion. Cavilol and Steristrips were used to reinforce the skin closure. Sterile dressings were applied to all wounds. The patient was extubated and brought to the Recovery Room in stable condition. - Complications none noted - Admit VTE Documentation VTE Present on Admission: Yes VTE Mechan Device Prophylaxis: SCD's
[2017-06-23] MEDS: Ondansetron 4 MG/2 ML Vial (12:50)
--- NOTE | 2017-06-23 13:05 | PCA ---
pt off floor
[2017-06-23] MEDS: Bupivacaine 0.25% 30 ML Vial (13:09)
[2017-06-23 13:36] LABS: Bedside Glucose 193 mg/dL (70-110)
[2017-06-23] MEDS: Metoprolol(XL)Succ 25 MG Tablet PO (16:09)
[2017-06-23] MEDS: Lisinopril 10 MG Tablet PO (16:10)
[2017-06-23 17:31] LABS: Bedside Glucose 216 mg/dL (70-110)
[2017-06-23] MEDS: HYDROmorphone 0.5 MG/0.5 ML SYRINGE IV ×2 (17:38→20:08)
[2017-06-23] MEDS: 0.9% NaCl Peripheral Flush Adult/Peds IV (17:39)
[2017-06-23] MEDS: 0.9% Normal Saline 1,000 ML 75 ML IV (22:05)
[2017-06-23] MEDS: HYDROcodone Bitartrate/Apap 5/325 Tablet PO (22:39)
[2017-06-23] MEDS: Atorvastatin Calcium 20 MG Tablet PO (22:39)
[2017-06-23 23:15] LABS: Bedside Glucose 258 mg/dL (70-110)
[2017-06-24] VITALS (7 sets, daily range): BP systolic 78–106; BP diastolic 40–58; PULSE 67–91; RESP 16–18; TEMP 36.7–37.1; O2SAT 93–96
[2017-06-24] MEDS: HYDROcodone Bitartrate/Apap 5/325 Tablet PO ×2 (02:57→06:54)
[2017-06-24 06:51] LABS: Bedside Glucose 199 mg/dL (70-110)
--- NOTE | 2017-06-24 08:07 | PCM.PN.SRG ---
- Physical Exam General: Alert, Oriented x3 Oral: Moist Mucosa Neck: Supple Lungs: Normal air movement Abdomen: Bowel Sounds Present, Soft, Distended, - - dressings intact, minimal seepage, KURT output is serosanguinous rectal examination - no stools in vault, air in vault Vital Signs Temp Pulse Resp BP Pulse Ox 98.1 F 67 16 87/40 L 93 06/24/17 03:00 06/24/17 03:00 06/24/17 03:00 06/24/17 03:00 06/24/17 03:00 Oxygen Flow Rate (L/min) 2 Oxygen Delivery Method Room Air Weight: 67.631 kg Body Mass Index (BMI) 27.2 Intake and Output for Last 24 Hours 06/22/17 06/23/17 06/24/17 23:59 23:59 23:59 Intake Total 220 / 220 4486 / 4486 2012 Output Total 200 / 200 60 / 60 Balance 220 / 220 4286 / 4286 1952 / 1952 Laboratory Tests Past 24 Hrs 06/23/17 05:35 Hemoglobin A1c 8.8 H POC Glucose 06/24/17 06/23/17 06/23/17 06:39 22:49 16:17 POC Glucose 199 H 258 H 216 H 06/23/17 13:33 POC Glucose 193 H Medical Necessity - Tobacco Use Smoking Status: Former smoker Assessment/Plan Impression: POD#1 s/p laparoscopic cholecystectomy Plan: Patient still feeling weak, also still with pain Will change to dilaudid Check labs I will be leaving town this afternoon, if patient is not discharged, Dr. Reyes will follow patient.
[2017-06-24 09:09] LABS: Absolute Lymphocyte Count 1.79 X10^3/ul (0.83-4.51); Absolute Neutrophil Count 7.9 X10^3/uL (2.0-7.7); Basophil# 0.01 X10^3/uL; Basophil% 0.1 % (0-1); Eosinophil# 0.04 X10^3/uL; Eosinophils% 0.4 % (0-5); Hematocrit 33.2 % (37-47); Hemoglobin 10.8 g/dl (12.0-15.0); Lymphocyte # 1.79 X10^3/ul (4.0); Lymphocyte % 16.2 % (19-41); Mean Corp Hgb Conc 32.5 g/gl (32-36); Mean Corpuscular Hgb 30.6 pg (27.0-32.0); Mean Corpuscular Volume 94.1 fL (81-99); Mean Platelet Vol. 11.2 fl (6.2-12.0); Monocyte# 1.31 X10^3/uL; Monocyte% 11.9 % (0-10); Neutrophil # 7.86 X10^3/uL (2.7-7.7); POSITIVE COUNT NO; POSITIVE DIFFERENTIAL NO; POSITIVE MORPHOLOGY NO; Platelet Count 148 K/mm3 (150-450); RBC Distribution Width CV 12.8 % (11.6-14.6); RBC Distribution Width SD 42.4 fl (35.1-43.9); Red Blood Count 3.53 M/mm3 (4.2-5.4); White Blood Count 11.1 K/mm3 (4.4-11.0)
[2017-06-24 09:35] LABS: ALB/GLOB Ratio 0.8 RATIO (0.9-2.4); AST(SGOT) 29 U/L (15-37); Alanine Aminotransfer ALT/SGPT 15 U/L (13-56); Albumin, Serum 2.6 g/dL (3.2-5.0); Alkaline Phosphatase 42 U/L (45-117); Anion Gap 7 (5-15); BUN 17 mg/dL (7-18); BUN/Creat Ratio 11.2 RATIO (10-20); Calcium,Total 7.7 mg/dL (8.5-10.1); Chloride 109 mmol/L (98-107); Creatinine, Serum 1.52 mg/dL (0.55-1.02); EST Glomerular Filtration Rate 36 mL/min (>60); Est Glom Filt Rate - Afr Amer 43 mL/min (>60); Estimated Creatinine Clearance 26.07 ml/min; Globulin 3.1 g/dL (2.2-4.2); Glucose 209 mg/dL (74-106); Potassium 4.3 mmol/L (3.5-5.1); Protein, Total 5.7 g/dL (6.4-8.2); Sodium Level 142 mmol/L (136-145)
--- NOTE | 2017-06-24 09:54 | PCM.DC.GB ---
Discharge Diet: No Restrictions Discharge Activity: Return to Normal Activity, May not drive while taking narcotic pain medications. Lifting Restrictions: no lifting greater the 20 pounds for 2 weeks Call your doctor if your incision/area has: Continuous Slow Oozing, Foul Smelling Discharge Call your doctor if you observe: Fever of 101 or Higher Additional Dressing/Incision Instructions:: Leave dressings intact. Sponge bathe only. Empty KURT drain and reconstitute suction as instructed by nurses Allergies/Adverse Reactions: Allergies iodine Allergy (Verified 06/22/17 10:15) Unknown prednisone Adverse Reaction (Verified 06/22/17 10:15) Other TACHYCARDIA Medications to take at Discharge Cholecalciferol (Vitamin D3) [Vitamin D3] 1,000 unit PO DAILY 06/22/17 Clopidogrel Bisulfate [Plavix] 75 mg PO DINNER 06/22/17 Enalapril/Hydrochlorothiazide [Enalapril-Hctz 10-25 mg Tablet] 1 each PO DAILY 06/22/17 Glipizide 2.5 mg PO BIDCM 06/22/17 Magnesium 500 mg PO DAILY 06/22/17 Metoprolol Succinate 25 mg PO DAILY 06/22/17 Potassium Chloride [Klor-Con] 20 meq PO DAILY 06/22/17 Ranitidine [Zantac] 150 mg PO DAILY 06/22/17 Simvastatin 40 mg PO QHS 06/22/17 traZODone [Desyrel] 100 mg PO QHS 06/22/17 Primary Care Physician: Lynn Jones MD [Primary Care Provider] - Please Follow Up With: Marika Valdes MD - When: to be seen on Tuesday at 2:20 at my office, thank you
--- NOTE | 2017-06-24 10:01 | DCINST_ITS ---
Discharge Diet: No Restrictions Discharge Activity: Return to Normal Activity, May not drive while taking narcotic pain medications. Lifting Restrictions: no lifting greater the 20 pounds for 2 weeks Call your doctor if your incision/area has: Continuous Slow Oozing, Foul Smelling Discharge Call your doctor if you observe: Fever of 101 or Higher Additional Dressing/Incision Instructions:: Leave dressings intact. Sponge bathe only. Empty KURT drain and reconstitute suction as instructed by nurses Allergies/Adverse Reactions: Allergies iodine Allergy (Verified 06/22/17 10:15) Unknown prednisone Adverse Reaction (Verified 06/22/17 10:15) Other TACHYCARDIA Medications to take at Discharge Cholecalciferol (Vitamin D3) [Vitamin D3] 1,000 unit PO DAILY 06/22/17 Clopidogrel Bisulfate [Plavix] 75 mg PO DINNER 06/22/17 Enalapril/Hydrochlorothiazide [Enalapril-Hctz 10-25 mg Tablet] 1 each PO DAILY 06/22/17 Glipizide 2.5 mg PO BIDCM 06/22/17 Magnesium 500 mg PO DAILY 06/22/17 Metoprolol Succinate 25 mg PO DAILY 06/22/17 Potassium Chloride [Klor-Con] 20 meq PO DAILY 06/22/17 Ranitidine [Zantac] 150 mg PO DAILY 06/22/17 Simvastatin 40 mg PO QHS 06/22/17 traZODone [Desyrel] 100 mg PO QHS 06/22/17 Primary Care Physician: Lynn Jones MD [Primary Care Provider] - Please Follow Up With: Marika Valdes MD - When: to be seen on Tuesday at 2:20 at my office, thank you
[2017-06-24] MEDS: hydroCHLOROthiazide 25 MG Tablet PO (10:49)
[2017-06-24 11:35] LABS: Bedside Glucose 192 mg/dL (70-110)
--- NOTE | 2017-06-24 12:25 | CASEMGMT ---
RN YAS discussed dc planning with pt. PT/OT evaluations completed-ambulated 120' CG, assist of 1. is in room. Pt plans to return home and agrees, states there will be plenty of help at home. Discussed dc needs. None identified. Pt will be able to f/u with physicians and has prescription coverage. Plan: dc home tomorrow with family support. Margie JENSEN RN CM
[2017-06-24] MEDS: Acetaminophen 500 MG Tablet 1000 MG PO ×2 (13:12→21:22)
[2017-06-24] MEDS: 0.9% Normal Saline 1,000 ML 100 ML IV ×2 (13:13→22:47)
--- NOTE | 2017-06-24 14:03 | PCM.PN.HOSP ---
Subjective: Patient was seen and examined, she feels weak. Pain in the right upper quadrant region, area of his surgery is fairly controlled. Her night was significant for episodes of hypotension, status post fluid boluses, was secondary to a Dilaudid pain medications. I explained the risks and benefits of pain medications. Blood pressure at the moment is less than 90 systolic. Denied any dizziness or shortness of breath or leg swelling. She complains of feeling tired. Denies any fever or chills Objective: Physical exam: General: Alert, Oriented x3, Cooperative, appears weak, not pale, not jaundiced HEENT: Atraumatic, PERRLA, EOMI, Normocephalic Oral: Moist Mucosa Neck: Supple Lungs: Clear to auscultation, Normal air movement Cardiovascular: Regular rate, Regular Rhythm, Normal S1, Normal S2, No murmurs Abdomen: Bowel Sounds Present, Soft,Tenderness over RUQ with guarding, dressing over RUQ with drains showing serosanguinous discharge, Obese, Tender - in RUQ without guarding or RBT Extremities: No edema Skin: No rashes, No breakdown Musculoskeletal: No Tenderness to Palpation of Joints or Extremities Lymphatic: No Cervical, Supraclavicular, or Inguinal Adenopathy Neurological: Cranial nerves II-XII grossly intact, Neuro grossly intact Psych/Mental Status: Normal Affect, Appropriate Vitals/I&O's: Vital Signs Temp Pulse Resp BP Pulse Ox 98.8 F 80 16 95/53 L 96 06/24/17 11:28 06/24/17 11:28 06/24/17 11:28 06/24/17 11:28 06/24/17 11:28 Oxygen Flow Rate (L/min) 2 Oxygen Delivery Method Room Air Weight: 67.631 kg Body Mass Index (BMI) 27.2 Intake and Output for Last 24 Hours 06/22/17 06/23/17 06/24/17 23:59 23:59 23:59 Intake Total 220 / 220 4486 / 4486 3148 / 3148 Output Total 200 / 200 60 / 60 Balance 220 / 220 4286 / 4286 3088 / 3088 Laboratory Results 06/23/17 16:17: POC Glucose 216 H 06/23/17 22:49: POC Glucose 258 H 06/24/17 06:39: POC Glucose 199 H 06/24/17 08:38: Sodium 142, Potassium 4.3, Chloride 109 H, Carbon Dioxide 26.0, Anion Gap 7, BUN 17, Creatinine 1.52 H, Estim Creat Clear Calc 26.07, Est GFR (MDRD) Af Amer 43 L, Est GFR (MDRD) Non-Af 36 L, BUN/Creatinine Ratio 11.2, Glucose 209 H, Calcium 7.7 L, Total Bilirubin 1.60 H, AST 29, ALT 15, Alkaline Phosphatase 42 L, Total Protein 5.7 L, Albumin 2.6 L, Globulin 3.1, Albumin/Globulin Ratio 0.8 L 06/24/17 09:06: WBC 11.1 H, RBC 3.53 L, Hgb 10.8 L, Hct 33.2 L, MCV 94.1, MCH 30.6, MCHC 32.5, RDW 12.8, RDW Differential 42.4, Plt Count 148 L, MPV 11.2, Immature Gran % (Auto) 0.400, Neut % (Auto) 71.0 H, Lymph % (Auto) 16.2 L, [place] % (Auto) 11.9 H, Eos % (Auto) 0.4, Baso % (Auto) 0.1, Absolute Neuts (auto) 7.9 H, Absolute Lymphs (auto) 1.79, Total Counted Not Reportable 06/24/17 11:25: POC Glucose 192 H Current Medications Acetaminophen (Tylenol) 1,000 mg PO Q8 [facility] Last Admin: 06/24/17 13:12 Dose: 1,000 mg Atorvastatin Calcium (Lipitor) 20 mg PO QHS [facility] Last Admin: 06/23/17 22:39 Dose: 20 mg Cholecalciferol (Vitamin D) 1,000 unit PO DAILY [facility] Last Admin: 06/24/17 10:49 Dose: 1,000 unit Clopidogrel Bisulfate (Plavix) 75 mg PO DINNER [facility] Dextrose (D50w Syringe) 0 gm IV X1 PRN; Protocol PRN Reason: Hypoglycemia Glipizide (Glucotrol) 2.5 mg PO BIDCM [facility] Glucagon () 1 mg IM .X1 PRN PRN Reason: Hypoglycemia Hydrochlorothiazide (Hctz) 25 mg PO DAILY [facility] Last Admin: 06/24/17 10:49 Dose: 25 mg Hydromorphone HCl (Dilaudid Inj) 0.5 mg IV Q2H PRN PRN PRN Reason: SEVERE PAIN (6-10/10) Pantoprazole Sodium 40 mg/ (Sodium Chloride) 110 mls @ 330 mls/hr IV Q12 [facility] Last Admin: 06/24/17 12:06 Dose: 330 mls/hr Cefotetan Disodium/Dextrose (Cefotan) 1 gm in 50 mls @ 100 mls/hr IV Q12 [facility] Last Admin: 06/24/17 10:48 Dose: 100 mls/hr Sodium Chloride () 1,000 mls @ 100 mls/hr IV .Q10H [facility] Last Admin: 06/24/17 13:13 Dose: 100 mls/hr Insulin Aspart (Novolog Flexpen (Bkc)) 0 units SC ACHS [facility] PRN Reason: Protocol Last Admin: 06/24/17 11:30 Dose: 2 u Lisinopril (Zestril) 10 mg PO DAILY [facility] Last Admin: 06/24/17 10:37 Dose: Not Given Magnesium Hydroxide (Milk Of Magnesia) 30 ml PO DAILY PRN PRN Reason: Constipation Metoprolol Succinate (Toprol Xl (Beta Silvana)) 25 mg PO DAILY [facility] Last Admin: 06/24/17 10:37 Dose: Not Given Non-Formulary Medication (Magnesium [Magnesium]) 500 mg PO DAILY [facility] Ondansetron HCl (Zofran) 4 mg IV Q8H PRN PRN PRN Reason: NAUSEA/VOMITING Oxycodone HCl (Oxyir) 5 mg PO Q6H PRN PRN PRN Reason: SEVERE PAIN (6-10/10) Potassium Chloride (K-Dur) 20 meq PO DAILY [facility] Last Admin: 06/24/17 10:49 Dose: 20 meq Senna/Docusate Sodium (Senokot-S, Abby-Colace) 1 tablet PO DAILY PRN PRN PRN Reason: CONSTIPATION Sodium Chloride () 5 - 30 ml IV UD PRN PRN Reason: SALINE FLUSH Last Admin: 06/23/17 17:39 Dose: 10 ml Trazodone HCl (Desyrel) 100 mg PO QHS [facility] Last Admin: 06/23/17 22:39 Dose: Not Given Medical Necessity - Tobacco Use Smoking Status: Former smoker Assessment/Plan 72-year-old female with PMHx of choledocholithiasis s/p ERCP with stent placement and removal, admitted on 06/22/2017 with abdominal pain, nausea, concerning for cholecystitis. 1. Relative hypotension noted in the immediate postop, likely related to narcotic pain medicine side effects, status post fluid boluses, will continue on IV fluids, will hold regular blood pressure medications for systolic less than 110. 2. POD #1, s/p laparoscopic cholecystectomy for acute cholecystitis, patient developed hypotension with narcotic pain medication, would rather use scheduled Tylenol with as needed oxycodone. 3. Hypokalemia, resolved, will recheck BMP in a.m. 4. Acute kidney injury, creatinine elevated to 1.50, secondary to dehydration, would hold lisinopril and hydrochlorothiazide, continue IV fluids, repeat blood work in a.m. 5. CAD s/p CABG, on beta-silvana, statin, MELISSA inhibitor, will resume Plavix 6. Hypertension, relatively hypotensive now, continue on metoprolol, hydrochlorothiazide and lisinopril are on hold, will continue to monitor, with holding parameters for systolic less than 110. 7. Hyperlipidemia, on statin. 8. CVA/TIA, on statin, metoprolol, Plavix 9. History of diverticulitis 10. GERD, on famotidine 11.Type 2 diabetes mellitus, blood sugars uncontrolled, home glipizide on hold, will resume 12. Depression, on trazodone. 13. DVT prophylaxis-Lovenox subcu 14. Disposition: Possible discharge tomorrow if patient improves, blood pressure is improved, pain is controlled, and physical and occupational therapy give their assessment for disposition. General surgery is ready for discharge from their standpoint. Patient appeared weak and had hypotensione today. Code Visit Inpatient E&M: 15546 Subs Hosp L3
--- NOTE | 2017-06-24 14:06 | PN_ITS ---
Subjective: Patient was seen and examined, she feels weak. Pain in the right upper quadrant region, area of his surgery is fairly controlled. Her night was significant for episodes of hypotension, status post fluid boluses , was secondary to a Dilaudid pain medications. I explained the risks and benefits of pain medications. Blood pressure at the moment is less than 90 systolic. Denied any dizziness or shortness of breath or leg swelling. She complains of feeling tired. Denies any fever or chills Objective: Physical exam: General: Alert, Oriented x3, Cooperative, appears weak, not pale, not jaundiced HEENT: Atraumatic, PERRLA, EOMI, Normocephalic Oral: Moist Mucosa Neck: Supple Lungs: Clear to auscultation, Normal air movement Cardiovascular: Regular rate, Regular Rhythm, Normal S1, Normal S2, No murmurs Abdomen: Bowel Sounds Present, Soft,Tenderness over RUQ with guarding, dressing over RUQ with drains showing serosanguinous discharge, Obese, Tender - in RUQ without guarding or RBT Extremities: No edema Skin: No rashes, No breakdown Musculoskeletal: No Tenderness to Palpation of Joints or Extremities Lymphatic: No Cervical, Supraclavicular, or Inguinal Adenopathy Neurological: Cranial nerves II-XII grossly intact, Neuro grossly intact Psych/Mental Status: Normal Affect, Appropriate Vitals/I&O's: Vital Signs Temp Pulse Resp BP Pulse Ox 98.8 F 80 16 95/53 L 96 06/24/17 11:28 06/24/17 11:28 06/24/17 11:28 06/24/17 11:28 06/24/17 11:28 Oxygen Flow Rate (L/min) 2 Oxygen Delivery Method Room Air Weight: 67.631 kg Body Mass Index (BMI) 27.2 Intake and Output for Last 24 Hours 06/22/17 06/23/17 06/24/17 23:59 23:59 23:59 Intake Total 220 / 220 4486 / 4486 3148 / 3148 Output Total 200 / 200 60 / 60 Balance 220 / 220 4286 / 4286 3088 / 3088 Laboratory Results 06/23/17 16:17: POC Glucose 216 H 06/23/17 22:49: POC Glucose 258 H 06/24/17 06:39: POC Glucose 199 H 06/24/17 08:38: Sodium 142, Potassium 4.3, Chloride 109 H, Carbon Dioxide 26.0, Anion Gap 7, BUN 17, Creatinine 1.52 H, Estim Creat Clear Calc 26.07, Est GFR ( MDRD) Af Amer 43 L, Est GFR (MDRD) Non-Af 36 L, BUN/Creatinine Ratio 11.2, Glucose 209 H, Calcium 7.7 L, Total Bilirubin 1.60 H, AST 29, ALT 15, Alkaline Phosphatase 42 L, Total Protein 5.7 L, Albumin 2.6 L, Globulin 3.1, Albumin/ Globulin Ratio 0.8 L 06/24/17 09:06: WBC 11.1 H, RBC 3.53 L, Hgb 10.8 L, Hct 33.2 L, MCV 94.1, MCH 30.6, MCHC 32.5, RDW 12.8, RDW Differential 42.4, Plt Count 148 L, MPV 11.2, Immature Gran % (Auto) 0.400, Neut % (Auto) 71.0 H, Lymph % (Auto) 16.2 L, [place] % (Auto) 11.9 H, Eos % (Auto) 0.4, Baso % (Auto) 0.1, Absolute Neuts (auto) 7.9 H, Absolute Lymphs (auto) 1.79, Total Counted Not Reportable 06/24/17 11:25: POC Glucose 192 H Current Medications Acetaminophen (Tylenol) 1,000 mg PO Q8 [facility] Last Admin: 06/24/17 13:12 Dose: 1,000 mg Atorvastatin Calcium (Lipitor) 20 mg PO QHS [facility] Last Admin: 06/23/17 22:39 Dose: 20 mg Cholecalciferol (Vitamin D) 1,000 unit PO DAILY [facility] Last Admin: 06/24/17 10:49 Dose: 1,000 unit Clopidogrel Bisulfate (Plavix) 75 mg PO DINNER [facility] Dextrose (D50w Syringe) 0 gm IV X1 PRN; Protocol PRN Reason: Hypoglycemia Glipizide (Glucotrol) 2.5 mg PO BIDCM [facility] Glucagon () 1 mg IM .X1 PRN PRN Reason: Hypoglycemia Hydrochlorothiazide (Hctz) 25 mg PO DAILY [facility] Last Admin: 06/24/17 10:49 Dose: 25 mg Hydromorphone HCl (Dilaudid Inj) 0.5 mg IV Q2H PRN PRN PRN Reason: SEVERE PAIN (6-10/10) Pantoprazole Sodium 40 mg/ (Sodium Chloride) 110 mls @ 330 mls/hr IV Q12 [facility] Last Admin: 06/24/17 12:06 Dose: 330 mls/hr Cefotetan Disodium/Dextrose (Cefotan) 1 gm in 50 mls @ 100 mls/hr IV Q12 [facility] Last Admin: 06/24/17 10:48 Dose: 100 mls/hr Sodium Chloride () 1,000 mls @ 100 mls/hr IV .Q10H [facility] Last Admin: 06/24/17 13:13 Dose: 100 mls/hr Insulin Aspart (Novolog Flexpen (Bkc)) 0 units SC ACHS [facility] PRN Reason: Protocol Last Admin: 06/24/17 11:30 Dose: 2 u Lisinopril (Zestril) 10 mg PO DAILY [facility] Last Admin: 06/24/17 10:37 Dose: Not Given Magnesium Hydroxide (Milk Of Magnesia) 30 ml PO DAILY PRN PRN Reason: Constipation Metoprolol Succinate (Toprol Xl (Beta Silvana)) 25 mg PO DAILY [facility] Last Admin: 06/24/17 10:37 Dose: Not Given Non-Formulary Medication (Magnesium [Magnesium]) 500 mg PO DAILY [facility] Ondansetron HCl (Zofran) 4 mg IV Q8H PRN PRN PRN Reason: NAUSEA/VOMITING Oxycodone HCl (Oxyir) 5 mg PO Q6H PRN PRN PRN Reason: SEVERE PAIN (6-10/10) Potassium Chloride (K-Dur) 20 meq PO DAILY [facility] Last Admin: 06/24/17 10:49 Dose: 20 meq Senna/Docusate Sodium (Senokot-S, Abby-Colace) 1 tablet PO DAILY PRN PRN PRN Reason: CONSTIPATION Sodium Chloride () 5 - 30 ml IV UD PRN PRN Reason: SALINE FLUSH Last Admin: 06/23/17 17:39 Dose: 10 ml Trazodone HCl (Desyrel) 100 mg PO QHS [facility] Last Admin: 06/23/17 22:39 Dose: Not Given Medical Necessity - Tobacco Use Smoking Status: Former smoker Assessment/Plan 72-year-old female with PMHx of choledocholithiasis s/p ERCP with stent placement and removal, admitted on 06/22/2017 with abdominal pain, nausea, concerning for cholecystitis. 1. Relative hypotension noted in the immediate postop, likely related to narcotic pain medicine side effects, status post fluid boluses, will continue on IV fluids, will hold regular blood pressure medications for systolic less than 110. 2. POD #1, s/p laparoscopic cholecystectomy for acute cholecystitis, patient developed hypotension with narcotic pain medication, would rather use scheduled Tylenol with as needed oxycodone. 3. Hypokalemia, resolved, will recheck BMP in a.m. 4. Acute kidney injury, creatinine elevated to 1.50, secondary to dehydration, would hold lisinopril and hydrochlorothiazide, continue IV fluids, repeat blood work in a.m. 5. CAD s/p CABG, on beta-silvana, statin, MELISSA inhibitor, will resume Plavix 6. Hypertension, relatively hypotensive now, continue on metoprolol, hydrochlorothiazide and lisinopril are on hold, will continue to monitor, with holding parameters for systolic less than 110. 7. Hyperlipidemia, on statin. 8. CVA/TIA, on statin, metoprolol, Plavix 9. History of diverticulitis 10. GERD, on famotidine 11.Type 2 diabetes mellitus, blood sugars uncontrolled, home glipizide on hold, will resume 12. Depression, on trazodone. 13. DVT prophylaxis-Lovenox subcu 14. Disposition: Possible discharge tomorrow if patient improves, blood pressure is improved, pain is controlled, and physical and occupational therapy give their assessment for disposition. General surgery is ready for discharge from their standpoint. Patient appeared weak and had hypotensione today. Code Visit Inpatient E&M: 34514 Subs Hosp L3
[2017-06-24] MEDS: Clopidogrel Bisulfate 75 MG Tablet PO (16:14)
[2017-06-24] MEDS: glipiZIDE 5 MG Tablet 2.5 MG PO (16:14)
[2017-06-24 16:26] LABS: Bedside Glucose 192 mg/dL (70-110)
[2017-06-24] MEDS: Senna/Docusate Sodium 1 Tablet PO (19:03)
[2017-06-24] MEDS: oxyCODONE 5 MG Tablet PO (19:03)
[2017-06-24] MEDS: Atorvastatin Calcium 20 MG Tablet PO (21:21)
[2017-06-25 00:26] LABS: Bedside Glucose 138 mg/dL (70-110)
[2017-06-25 02:30] VITALS: BP 121/61; PULSE 91; RESP 16; TEMP 36.8; O2SAT 96
[2017-06-25] MEDS: oxyCODONE 5 MG Tablet PO (03:31)
[2017-06-25] MEDS: Acetaminophen 500 MG Tablet 1000 MG PO (06:52)
[2017-06-25 07:00] LABS: Bedside Glucose 136 mg/dL (70-110)
--- NOTE | 2017-06-25 07:39 | PN.SURG_ITS ---
Subjective: Patient is doing well and reporting that the oral meds are controlling her pain. She has no nausea or vomiting. She is passing gas. She tolerated some diet last night and ordered breakfast for this morning. - Physical Exam General: Alert, Oriented x3, Cooperative, No apparent distress HEENT: Atraumatic, PERRLA, EOMI Oral: Moist Mucosa Lungs: Normal air movement Cardiovascular: Regular rate, Regular Rhythm Abdomen: Soft, Non-Distended, Tender - Appropriately tender in the right upper quadrant with no guarding or rebound., - - Incisions are clean dry and intact. KURT drainage is serous. Extremities: No clubbing Skin: No rashes Musculoskeletal: No Muscle Wasting Neurological: Cranial nerves II-XII grossly intact Psych/Mental Status: Normal Affect Vital Signs Temp Pulse Resp BP Pulse Ox 98.3 F 91 16 121/61 H 96 06/25/17 02:30 06/25/17 02:30 06/25/17 02:30 06/25/17 02:30 06/25/17 02:30 Oxygen Flow Rate (L/min) 2 Oxygen Delivery Method Room Air Weight: 149 lb 1.613 oz Body Mass Index (BMI) 27.2 Intake and Output for Last 24 Hours 06/23/17 06/24/17 06/25/17 23:59 23:59 23:59 Intake Total 4486 / 4486 4311 / 4311 1802 / 1802 Output Total 200 / 200 80 / 80 25 / 25 Balance 4286 / 4286 4231 / 4231 1777 / 1777 Laboratory Tests Past 24 Hrs 06/24/17 06/24/17 08:38 09:06 WBC 11.1 H RBC 3.53 L Hgb 10.8 L Hct 33.2 L MCV 94.1 MCH 30.6 MCHC 32.5 RDW 12.8 RDW Differential 42.4 Plt Count 148 L MPV 11.2 Immature Gran % (Auto) 0.400 Neut % (Auto) 71.0 H Lymph % (Auto) 16.2 L [place] % (Auto) 11.9 H Eos % (Auto) 0.4 Baso % (Auto) 0.1 Absolute Neuts (auto) 7.9 H Absolute Lymphs (auto) 1.79 Total Counted Not Reportable Sodium 142 Potassium 4.3 Chloride 109 H Carbon Dioxide 26.0 Anion Gap 7 BUN 17 Creatinine 1.52 H Estim Creat Clear Calc 26.07 Est GFR (MDRD) Af Amer 43 L Est GFR (MDRD) Non-Af 36 L BUN/Creatinine Ratio 11.2 Glucose 209 H Calcium 7.7 L Total Bilirubin 1.60 H AST 29 ALT 15 Alkaline Phosphatase 42 L Total Protein 5.7 L Albumin 2.6 L Globulin 3.1 Albumin/Globulin Ratio 0.8 L POC Glucose 06/25/17 06/24/17 06/24/17 06:55 21:26 16:12 POC Glucose 136 H 138 H 192 H 06/24/17 11:25 POC Glucose 192 H Medical Necessity - Tobacco Use Smoking Status: Former smoker Assessment/Plan 72-year-old female with acute cholecystitis status post laparoscopic cholecystectomy 1. Patient is doing well today and her pain is controlled on p.o. medication. If she tolerates breakfast she should be discharged home with drain in place. She will follow-up with Dr. Valdes on Tuesday. Cesar Reyes MD Pager: [facility] [address] [place] [address], [address] [place] [address] Office:
[2017-06-25 07:49] LABS: Absolute Lymphocyte Count 1.63 X10^3/ul (0.83-4.51); Absolute Neutrophil Count 7.9 X10^3/uL (2.0-7.7); Basophil# 0.01 X10^3/uL; Basophil% 0.1 % (0-1); Eosinophil# 0.09 X10^3/uL; Eosinophils% 0.8 % (0-5); Hematocrit 34.3 % (37-47); Hemoglobin 11.1 g/dl (12.0-15.0); Lymphocyte # 1.63 X10^3/ul (4.0); Lymphocyte % 15.3 % (19-41); Mean Corp Hgb Conc 32.4 g/gl (32-36); Mean Corpuscular Hgb 29.9 pg (27.0-32.0); Mean Corpuscular Volume 92.5 fL (81-99); Monocyte# 0.98 X10^3/uL; Monocyte% 9.2 % (0-10); Neutrophil # 7.92 X10^3/uL (2.7-7.7); Neutrophil % 74.3 % (47-70); Platelet Count 162 K/mm3 (150-450); RBC Distribution Width CV 13.1 % (11.6-14.6); RBC Distribution Width SD 44.2 fl (35.1-43.9); Red Blood Count 3.71 M/mm3 (4.2-5.4); White Blood Count 10.7 K/mm3 (4.4-11.0)
[2017-06-25 07:56] LABS: POSITIVE COUNT NO; POSITIVE DIFFERENTIAL NO; POSITIVE MORPHOLOGY NO
[2017-06-25 08:26] LABS: ALB/GLOB Ratio 0.7 RATIO (0.9-2.4); AST(SGOT) 37 U/L (15-37); Alanine Aminotransfer ALT/SGPT 17 U/L (13-56); Albumin, Serum 2.6 g/dL (3.2-5.0); Alkaline Phosphatase 56 U/L (45-117); Anion Gap 8 (5-15); BUN 12 mg/dL (7-18); Chloride 109 mmol/L (98-107); EST Glomerular Filtration Rate 47 mL/min (>60); Est Glom Filt Rate - Afr Amer 57 mL/min (>60); Estimated Creatinine Clearance 33.02 ml/min; Globulin 3.6 g/dL (2.2-4.2); Glucose 130 mg/dL (74-106); Potassium 3.8 mmol/L (3.5-5.1); Protein, Total 6.2 g/dL (6.4-8.2); Sodium Level 141 mmol/L (136-145)
[2017-06-25] MEDS: glipiZIDE 5 MG Tablet 2.5 MG PO (08:30)
--- NOTE | 2017-06-25 09:15 | PCM.PN.HOSP ---
Subjective: Seen by surgeon. Patient is doing good. Plan to discharge home with strain Vitals/I&O's: Vital Signs Temp Pulse Resp BP Pulse Ox 98.6 F 99 18 104/53 L 99 06/25/17 09:33 06/25/17 09:33 06/25/17 09:33 06/25/17 09:33 06/25/17 09:33 Oxygen Flow Rate (L/min) 2 Oxygen Delivery Method Room Air Weight: 149 lb 1.613 oz Body Mass Index (BMI) 27.2 Intake and Output for Last 24 Hours 06/23/17 06/24/17 06/25/17 23:59 23:59 23:59 Intake Total 4486 / 4486 4311 / 4311 1802 / 1802 Output Total 200 / 200 80 / 80 25 / 25 Balance 4286 / 4286 4231 / 4231 1777 / 1777 General: Alert, Oriented x3, Cooperative HEENT: Atraumatic, PERRLA, EOMI, Normocephalic Neck: Supple, No JVD, Negative Carotid Bruits Lungs: Clear to auscultation, Normal air movement Cardiovascular: Regular rate, Normal S1, Normal S2, No murmurs Abdomen: Bowel Sounds Present, Soft, Tender - Tenderness in the right upper quadrant. KURT drain serous in nature Extremities: No edema, Capillary Refill Less than 3 Seconds Skin: No rashes, No breakdown Musculoskeletal: No Tenderness to Palpation of Joints or Extremities Neurological: Cranial nerves II-XII grossly intact Psych/Mental Status: Normal Affect, Appropriate Laboratory Results 06/24/17 11:25: POC Glucose 192 H 06/24/17 16:12: POC Glucose 192 H 06/24/17 21:26: POC Glucose 138 H 06/25/17 06:55: POC Glucose 136 H 06/25/17 07:10: WBC 10.7, RBC 3.71 L, Hgb 11.1 L, Hct 34.3 L, MCV 92.5, MCH 29.9, MCHC 32.4, RDW 13.1, RDW Differential 44.2 H, Plt Count 162, MPV 11.0, Immature Gran % (Auto) 0.300, Neut % (Auto) 74.3 H, Lymph % (Auto) 15.3 L, [place] % (Auto) 9.2, Eos % (Auto) 0.8, Baso % (Auto) 0.1, Absolute Neuts (auto) 7.9 H, Absolute Lymphs (auto) 1.63, Total Counted Not Reportable 06/25/17 07:10: Sodium 141, Potassium 3.8, Chloride 109 H, Carbon Dioxide 24.0, Anion Gap 8, BUN 12, Creatinine 1.20 H, Estim Creat Clear Calc 33.02, Est GFR (MDRD) Af Amer 57 L, Est GFR (MDRD) Non-Af 47 L, BUN/Creatinine Ratio 10.0, Glucose 130 H, Calcium 8.0 L, Total Bilirubin 0.80, AST 37, ALT 17, Alkaline Phosphatase 56, Total Protein 6.2 L, Albumin 2.6 L, Globulin 3.6, Albumin/Globulin Ratio 0.7 L Medical Necessity - Tobacco Use Smoking Status: Former smoker Assessment/Plan patient is a 72-year-old female admitted for acute cholecystitis with cholelithiasis. She had similar abdominal pain with cholecystitis about 3 years ago but surgery was postponed secondary to coronary artery disease and she had coronary artery bypass surgery. She did not had cardiac event since then. She has good exercise capacity and climbs up and down several times about 30 steps daily. She can walk 1-2 blocks. EKG shows normal sinus rhythm with old septal infarct. Mcgee perioperative risk for MS or cardiac arrest at 0.1%. Patient had postop day 2 of laparoscopic cholecystectomy with KURT drain. Electrolytes are within normal limits. 1. Relative hypotension noted in the immediate postop, likely related to narcotic pain medicine side effects: Resolved 2. POD #2, s/p laparoscopic cholecystectomy for acute cholecystitis; in good. Plan for discharge today. Patient will go home with KURT drain. Follow-up with Dr. Valdes on Tuesday. 3. Hypokalemia, resolved, 4. Acute kidney injury, creatinine elevated to 1.50, secondary to dehydration, initially enalapril and hydrochlorothiazide held, continue IV fluids, creatinine is 1.2. Resume enalapril 5 mg daily and then increase 10 mg daily and slowly reintroduce hydrochlorothiazide. 5. CAD s/p CABG, on beta-husam, statin, MELISSA inhibitor, will resume Plavix 6. Hypertension, blood pressure better. 121/61. 7. Hyperlipidemia, on statin. 8. CVA/TIA, on statin, metoprolol, Plavix 9. History of diverticulitis 10. GERD, on famotidine 11.Type 2 diabetes mellitus, blood sugars uncontrolled, on home glipizide: Resumed 12. Depression, on trazodone. 13. DVT prophylaxis-Lovenox subcu Clinical Impression(s) from Imaging Studies Gallbladder Ultrasound 06/22/17 11:01 IMPRESSION: Cholelithiasis and positive sonographic Swann's sign. Gallbladder wall thickening. Acute cholecystitis is not excluded No pericholecystic fluid. Electronically Signed: Reji Velez MD at 12:10 EDT Tel , Service support , The patient is being discharged by surgical team. Hospitalist team will sign off. Code Visit Inpatient E&M: 15900 Subs Hosp L2
[2017-06-25 09:33] VITALS: BP 104/53; PULSE 99; RESP 18; TEMP 37; O2SAT 99
--- NOTE | 2017-06-25 10:54 | PN_ITS ---
Subjective: Seen by surgeon. Patient is doing good. Plan to discharge home with strain Vitals/I&O's: Vital Signs Temp Pulse Resp BP Pulse Ox 98.6 F 99 18 104/53 L 99 06/25/17 09:33 06/25/17 09:33 06/25/17 09:33 06/25/17 09:33 06/25/17 09:33 Oxygen Flow Rate (L/min) 2 Oxygen Delivery Method Room Air Weight: 149 lb 1.613 oz Body Mass Index (BMI) 27.2 Intake and Output for Last 24 Hours 06/23/17 06/24/17 06/25/17 23:59 23:59 23:59 Intake Total 4486 / 4486 4311 / 4311 1802 / 1802 Output Total 200 / 200 80 / 80 25 / 25 Balance 4286 / 4286 4231 / 4231 1777 / 1777 General: Alert, Oriented x3, Cooperative HEENT: Atraumatic, PERRLA, EOMI, Normocephalic Neck: Supple, No JVD, Negative Carotid Bruits Lungs: Clear to auscultation, Normal air movement Cardiovascular: Regular rate, Normal S1, Normal S2, No murmurs Abdomen: Bowel Sounds Present, Soft, Tender - Tenderness in the right upper quadrant. KURT drain serous in nature Extremities: No edema, Capillary Refill Less than 3 Seconds Skin: No rashes, No breakdown Musculoskeletal: No Tenderness to Palpation of Joints or Extremities Neurological: Cranial nerves II-XII grossly intact Psych/Mental Status: Normal Affect, Appropriate Laboratory Results 06/24/17 11:25: POC Glucose 192 H 06/24/17 16:12: POC Glucose 192 H 06/24/17 21:26: POC Glucose 138 H 06/25/17 06:55: POC Glucose 136 H 06/25/17 07:10: WBC 10.7, RBC 3.71 L, Hgb 11.1 L, Hct 34.3 L, MCV 92.5, MCH 29.9 , MCHC 32.4, RDW 13.1, RDW Differential 44.2 H, Plt Count 162, MPV 11.0, Immature Gran % (Auto) 0.300, Neut % (Auto) 74.3 H, Lymph % (Auto) 15.3 L, Drew % (Auto) 9.2, Eos % (Auto) 0.8, Baso % (Auto) 0.1, Absolute Neuts (auto) 7.9 H, Absolute Lymphs (auto) 1.63, Total Counted Not Reportable 06/25/17 07:10: Sodium 141, Potassium 3.8, Chloride 109 H, Carbon Dioxide 24.0, Anion Gap 8, BUN 12, Creatinine 1.20 H, Estim Creat Clear Calc 33.02, Est GFR ( MDRD) Af Amer 57 L, Est GFR (MDRD) Non-Af 47 L, BUN/Creatinine Ratio 10.0, Glucose 130 H, Calcium 8.0 L, Total Bilirubin 0.80, AST 37, ALT 17, Alkaline Phosphatase 56, Total Protein 6.2 L, Albumin 2.6 L, Globulin 3.6, Albumin/ Globulin Ratio 0.7 L Medical Necessity - Tobacco Use Smoking Status: Former smoker Assessment/Plan patient is a 72-year-old female admitted for acute cholecystitis with cholelithiasis. She had similar abdominal pain with cholecystitis about 3 years ago but surgery was postponed secondary to coronary artery disease and she had coronary artery bypass surgery. She did not had cardiac event since then. She has good exercise capacity and climbs up and down several times about 30 steps daily. She can walk 1-2 blocks. EKG shows normal sinus rhythm with old septal infarct. Mcgee perioperative risk for FL or cardiac arrest at 0.1%. Patient had postop day 2 of laparoscopic cholecystectomy with KURT drain. Electrolytes are within normal limits. 1. Relative hypotension noted in the immediate postop, likely related to narcotic pain medicine side effects: Resolved 2. POD #2, s/p laparoscopic cholecystectomy for acute cholecystitis; in good. Plan for discharge today. Patient will go home with KURT drain. Follow-up with Dr. Valdes on Tuesday. 3. Hypokalemia, resolved, 4. Acute kidney injury, creatinine elevated to 1.50, secondary to dehydration, initially enalapril and hydrochlorothiazide held, continue IV fluids, creatinine is 1.2. Resume enalapril 5 mg daily and then increase 10 mg daily and slowly reintroduce hydrochlorothiazide. 5. CAD s/p CABG, on beta-husam, statin, MELISSA inhibitor, will resume Plavix 6. Hypertension, blood pressure better. 121/61. 7. Hyperlipidemia, on statin. 8. CVA/TIA, on statin, metoprolol, Plavix 9. History of diverticulitis 10. GERD, on famotidine 11.Type 2 diabetes mellitus, blood sugars uncontrolled, on home glipizide: Resumed 12. Depression, on trazodone. 13. DVT prophylaxis-Lovenox subcu Clinical Impression(s) from Imaging Studies Gallbladder Ultrasound 06/22/17 11:01 IMPRESSION: Cholelithiasis and positive sonographic Swann's sign. Gallbladder wall thickening. Acute cholecystitis is not excluded No pericholecystic fluid. Electronically Signed: Reji Velez MD at 12:10 EDT Tel , Service support , The patient is being discharged by surgical team. Hospitalist team will sign off. Code Visit Inpatient E&M: 31689 Subs Hosp L2
--- NOTE | 2017-06-26 10:06 | PCM.DC.BLA ---
Discharge Summary Date of Admission: 06/22/17 Date of Discharge: 06/25/17 Summary: Ms. Kathi Lay is a 72 y/o WF who was admitted for right upper quadrant abdominal pain. Workup with gallbladder ultrasound revealed cholithiasis. Clinically, she appeared to have cholecystitis. She underwent surgery - laparoscopic cholecystectomy on 06/23/17. She was found to have cholelithiasis with obstruction and also chronic cholecystitis. There was a large amount of inflammation and the cystic duct was purposely left open (as further dissection could result in CBD injury) with intraabdominal drain placed. She tolerated procedure well. She had a normal postoperative recovery, however, given her age and frailty, she was discharged on POD#2, tolerating diet and having signs of bowel function. Final diagnosis: cholelithiasis with obstruction, acute on chronic cholecystitis
--- NOTE | 2017-06-28 15:20 | CASEMGMT ---
LUZMA CM Discharge Follow-up Phone Call: RG: Carlos Strata: 3 Call Date: 06/28/17 Discharge Date: 06/25/17 Time of Call: 1520 Duration: 1 min Admitting Diagnosis: Cholelithiasis, Cholecystitis RN YAS attempted follow-up phone call after recent hospitalization. No answer and voice message left with return contact information. No appts made prior to discharge.
== END 2017-06-25 10:18 | disposition home or self-care (01) | DRG 419 ==
LOC: ED 13:12 → MS2 13:14 → MS3 06-24 14:27
PROVIDERS: Anesthesiology; Internal Medicine; Nurse Practitioner Family; Surgery; Admitting Provider Surgery; Emergency Provider Emergency Medicine; Family Provider Internal Medicine; PCP Internal Medicine; Visit Provider Internal Medicine
PROC: 0FT44ZZ Resection of Gallbladder, Percutaneous Endoscopic Approach (ICD-10-PCS; CPT 47610; principal; 2017-06-23 10:40)
DX: K80.13 Calculus of gallbladder with acute and chronic cholecystitis with obstruction (principal); E11.9 Type 2 diabetes mellitus without complications; E78.5 Hyperlipidemia, unspecified; I10 Essential (primary) hypertension; E87.6 Hypokalemia; I25.10 Atherosclerotic heart disease of native coronary artery without angina pectoris; K21.9 Gastro-esophageal reflux disease without esophagitis; F32.9 Major depressive disorder, single episode, unspecified; E86.0 Dehydration; Z86.73 Personal history of transient ischemic attack (TIA), and cerebral infarction without residual deficits; Z95.1 Presence of aortocoronary bypass graft; Z87.891 Personal history of nicotine dependence
CPT/HCPCS: 36415; 76705; 80048; 80053; 81001; 82962; 83036; 83690; 85025; 85027; 88304; 93005; 97162; 97165; 99283; J7030; J7040; A4216; J2405

== ENCOUNTER 2017-10-01 11:15 | Emergency (ER) | payer MEDICARE, BC, SELFPAY ==
[2017-10-01 11:15] VITALS: BP 120/66; PULSE 62; RESP 16; TEMP 35.5; O2SAT 99; BMI 12.5
[2017-10-01] MEDS: 0.9% Normal Saline 1,000 ML 150 ML IV (12:06)
[2017-10-01 12:11] LABS: Absolute Lymphocyte Count 4.78 X10^3/ul (0.83-4.51); Absolute Neutrophil Count 3.9 X10^3/uL (2.0-7.7); Basophil# 0.04 X10^3/uL; Basophil% 0.4 % (0-1); Eosinophil# 0.16 X10^3/uL; Eosinophils% 1.6 % (0-5); Hematocrit 39.3 % (37-47); Hemoglobin 13.2 g/dl (12.0-15.0); Lymphocyte # 4.78 X10^3/ul (4.0); Lymphocyte % 48.8 % (19-41); Mean Corp Hgb Conc 33.6 g/gl (32-36); Mean Corpuscular Hgb 30.3 pg (27.0-32.0); Mean Corpuscular Volume 90.3 fL (81-99); Mean Platelet Vol. 10.8 fl (6.2-12.0); Monocyte# 0.93 X10^3/uL; Monocyte% 9.5 % (0-10); Neutrophil # 3.87 X10^3/uL (2.7-7.7); Neutrophil % 39.5 % (47-70); Platelet Count 215 K/mm3 (150-450); RBC Distribution Width CV 12.8 % (11.6-14.6); RBC Distribution Width SD 41.8 fl (35.1-43.9); Red Blood Count 4.35 M/mm3 (4.2-5.4); White Blood Count 9.8 K/mm3 (4.4-11.0)
[2017-10-01 12:21] LABS: AST(SGOT) 68 U/L (15-37); Alanine Aminotransfer ALT/SGPT 28 U/L (13-56); Albumin, Serum 3.7 g/dL (3.2-5.0); Alkaline Phosphatase 61 U/L (45-117); Anion Gap 9 (5-15); BUN 17 mg/dL (7-18); BUN/Creat Ratio 16.3 RATIO (10-20); Bilirubin, Direct 0.39 mg/dL (0.00-0.30); Chloride 105 mmol/L (98-107); Creatinine, Serum 1.04 mg/dL (0.55-1.02); EST Glomerular Filtration Rate 55 mL/min (>60); Est Glom Filt Rate - Afr Amer 67 mL/min (>60); Estimated Creatinine Clearance 23.63 ml/min; Globulin 3.5 g/dL (2.2-4.2); Glucose 153 mg/dL (74-106); Lipase 224 U/L (73-393); POSITIVE COUNT NO; POSITIVE DIFFERENTIAL NO; POSITIVE MORPHOLOGY NO; Potassium 3.6 mmol/L (3.5-5.1); Protein, Total 7.2 g/dL (6.4-8.2); Sodium Level 140 mmol/L (136-145)
[2017-10-01 13:34] VITALS: PULSE 64; RESP 16; O2SAT 98
[2017-10-01 14:12] VITALS: BMI 29.5
--- NOTE | 2017-10-01 14:35 | ED.DCSUM_ITS ---
- ER Visit Summary Date of Service: 10/01/17 Chief Complaint: Abdominal pain History of Present Illness: The patient is a 72 F with rather abrupt onset of upper abdominal pain approximately 1 hour prior to arrival. She points to the upper abdomen and then states it spread diffusely throughout her abdomen. She did feel somewhat nauseated. Patient had not eaten for approximately 5 hours before this symptom. She states it feels similar to when she had prior gallbladder problems but she had a cholecystectomy in June of this year. Patient denies pain into the chest or shortness of breath. Physical Examination: Vital signs are unremarkable. Patient sitting upright in bed. She appears uncomfortable but in no acute distress. She states the pain is starting to ease. Head neck examination is normal. Heart is regular rate and rhythm. Lung sounds are clear. Abdomen is soft with diffuse tenderness, worse over the upper abdomen. There is no guarding or rebound. Normal active bowel sounds are noted throughout. Lower external examination was no calf tenderness or edema. Test Results: CBC is unremarkable. Chemistry studies normal other than a glucose of 153. LFTs significant for total bili 1.3 and direct bili 0.39. AST is slightly elevated at 68. Lipase is normal. Troponin is normal. EKG is sinus at 63 with no sign of acute ischemia. CT abdomen pelvis reveals colonic diverticulosis. There is duodenal diverticulum noted as well. There is no evidence of pancreatitis. There is no bowel obstruction. Emergency Department Course and Treatment: Patient was ordered morphine and Zofran for pain, but declined stating that her pain was resolving. On repeat evaluation she is resting comfortably. Test results were discussed with her and family at bedside. At this time she will be discharged home to follow bland diet. She is to return if symptoms worsen or she has any concerns. Treatment Plan: [] Disposition: Discharge Impression: Abdominal pain, resolved, uncertain etiology This note was generated with [employer] dictation software. It may contain incorrect words, spelling, and punctuation that were not noted in review of the chart prior to signing ED Disposition - Plan for ED Patient: Chief Complaint: Abd Pain Referrals: Lynn Jones MD [Primary Care Provider] -
--- NOTE | 2017-10-01 14:35 | ED.DEP ---
ED Disposition - Plan for ED Patient: Disposition: Home or Assisted Living Chief Complaint: Abd Pain Instructions: ED Abdominal Pain Unkn Cause Referrals: Lynn Jones MD [Primary Care Provider] - As Needed
[2017-10-01 14:46] VITALS: BP 105/59; PULSE 73; RESP 16; O2SAT 98
== END 2017-10-01 14:47 | disposition home or self-care (01) ==
PROVIDERS: Emergency Provider Emergency Medicine; Family Provider Internal Medicine; PCP Internal Medicine
DX: R10.9 Unspecified abdominal pain (principal); R11.0 Nausea; K57.10 Diverticulosis of small intestine without perforation or abscess without bleeding; E11.9 Type 2 diabetes mellitus without complications; I10 Essential (primary) hypertension; E78.00 Pure hypercholesterolemia, unspecified; Z87.891 Personal history of nicotine dependence; Z90.49 Acquired absence of other specified parts of digestive tract
CPT/HCPCS: 74176; 80048; 80076; 83690; 84484; 85025; 93005; 96361; 96374; 96375; 99284; J7030; A4216; J2405